=== PATIENT | male | born 1950 | race Caucasian/White ===

== ENCOUNTER 2023-10-17 05:53 | Day surgery (SDC) | payer OTHER, SELFPAY ==
[2023-10-03 08:37] LABS: Hematocrit 43.3 % (39.0-52.0); Hemoglobin 14.4 g/dL (13.0-18.0); Mean Corp Hgb Conc. 33.3 g/dL (33.0-37.0); Mean Corpuscular Hgb 32.1 pg (27.0-31.0); Mean Corpuscular Volume 96.7 fL (80.0-94.0); Mean Platelet Volume 10.6 fL (7.4-10.4); Platelet Count 199 10^3/uL (130-400); Red Blood Cell Count 4.48 10^6/uL (4.70-6.10); Red Cell Dist. Width 13.2 % (11.5-14.5); White Blood Cell Count 7.6 10^3/uL (4.8-10.8)
[2023-10-03 08:44] LABS: Urine Albumin Negative (Neg - Trace); Urine Bilirubin Negative (Negative); Urine Character Clear (Clear); Urine Color Yellow; Urine Glucose Negative (Negative); Urine Ketone Negative (Negative); Urine Leukocyte Negative (Negative); Urine Nitrite Negative (Negative); Urine Occult Blood Negative (Negative); Urine Urobilinogen Negative (Neg - 1+)
[2023-10-03 08:47] LABS: Blood Urea Nitrogen 12 mg/dl (9-20); Carbon Dioxide 36 mmol/L (22-30); Chloride 101 mmol/L (98-107); Glucose 99 mg/dl (70-99); INR 1.02; PT 13.2 Sec (11.4-14.6); Potassium 3.7 mmol/L (3.5-5.1); Sodium 142 mmol/L (135-145); eGFR > 60.00
[2023-10-03 08:48] LABS: APTT 30.7 Sec (23.4-35.0)
[2023-10-03 13:25] VITALS: BMI 31.6
[2023-10-17] VITALS (9 sets, daily range): BP systolic 113–146; BP diastolic 68–92; BMI 31.6
== END 2023-10-17 15:12 | disposition home or self-care (01) ==
LOC: SDS 05:53
PROVIDERS: ATTENDING PHYSICIAN Surgery; FAMILY PHYSICIAN Family Medicine
DX: N43.41 Spermatocele of epididymis, single (principal); Z87.438 Personal history of other diseases of male genital organs
CPT/HCPCS: 54840; 88304; 36415; 80048; 81003; 85027; 85610; 85730; 93005

== ENCOUNTER → 2023-12-19 07:23 | Outpatient (REF) | payer OTHER, SELFPAY | LOC: HWRAD 07:23 | PROVIDERS: ATTENDING PHYSICIAN Internal Medicine Critical Care Medicine; FAMILY PHYSICIAN Family Medicine | DX: Z87.891 Personal history of nicotine dependence (principal) | CPT/HCPCS: 71271 ==

== ENCOUNTER 2024-12-17 10:01 | Inpatient (IN) | payer OTHER, SELFPAY ==
[2024-12-17] VITALS (24 sets, daily range): BP systolic 74–141; BP diastolic 44–89; PULSE 2–139
--- NOTE | 2024-12-17 07:10 | ED.GENMED ---
History of Present Illness
General
Chief Complaint: Breathing Problem
Source: patient and spouse
Exam Limitations: none
Time Seen by Provider: 12/17/24 07:01
Nursing documentation reviewed up to this point in time: agreed with
History of Present Illness
History of Present Illness:
74-year-old male with a past medical history of hypertension, hyperlipidemia, COPD, chronic respiratory failure on 3 L of oxygen at home who presents to the emergency department with his for evaluation of increasing cough and shortness of
breath. Patient reports symptoms have been ongoing for about 2 days but his says that he has appeared labored for about a week. Significantly worsening over the past 24 hours. This morning was very labored and brought him to the
emergency to be assessed. He has had increased cough over the past 2 days that he says is productive of clear sputum. He denies any chest pain. He denies subjective fever or chills but was noted to have a high fever here. He has not noted any
swelling in the legs. He has not had any abdominal pain, nausea/vomiting although he does admit to some loose stools. He denies any other complaints.
Past History
Past History
ED Past Medical History: COPD, HTN, Hypercholesterolemia and Psychiatric (Depression)
ED Past Surgical History: Appendectomy
Social History
Tobacco: Non-smoker
Alcohol: None
Drug: None
Personal:
Living: with family
Family History
Family History: Other
Review of Systems
Review of Systems
All Other Systems: ROS reviewed and negative except as documented in HPI and ROS
Constitutional: Reports fever and chills
Respiratory: Reports cough and trouble breathing
Cardiac: Denies chest pain
ABD/GI: Reports diarrhea; Denies abdominal pain, nausea or vomiting
: Denies flank pain
Musculoskeletal: Denies neck pain or back pain
Neurological: Denies headache
Phy Exam
Physical Exam
Physical Exam:
General: Awake, alert, moderate respiratory distress
Head: Normocephalic, atraumatic
Eyes: Conjunctiva normal, EOMI
Throat: Airway intact, handling secretions
Neck: Trachea midline, no JVD
Lungs: Patient is sitting upright, speaking in 1-2 word sentences, tachypneic with increased work of breathing and accessory muscle use; he is hypoxic (78% in triage but was not wearing his oxygen; on 3 L oxygen which he wears at home he is 87%); he
has diminished breath sounds throughout, faint scattered wheezing
Heart: Tachycardia with irregular rhythm, no murmurs, gallops, or rubs
Abd: Soft, non distended, nontender
Neuro: No gross deficits
Skin: no rash
Extremities: No edema in extremities, equal pulses in all extremities
Scores
Heart Failure Risk
Heart Failure Risk Score: Not Applicable
Heart Score for Chest Pain Patients
STEMI patient?: Not applicable
Withdrawal Assessment of Alcohol
Withdrawal Assessment Completed?: Not applicable
Sepsis
Sepsis Screening
Sepsis Assessment: Sepsis
Sepsis Screen
Sepsis Screen: Sepsis
Date: 12/17/24
Time: 10:22
Course
Orders/Labs/Results
Orders:
Orders
12/17/24 07:01
Urinalysis Reflex To Culture Urgent
Ipratropium/Albuterol Sulfate [Duoneb] 3 ml INH R NOW STA
12/17/24 07:02
Electrocardiogram (*1) Urgent
Reason for Study: Shortness of Breath
EKG- Treatment ONCE
0.9% Sodium Chloride 1000 ml [Nss] 1,000 ml IV BOLUS
Acetaminophen [Tylenol] 1,000 mg PO NOW STA
12/17/24 07:09
CR Chest Portable - 1 View Urgent
Comment:
Reason For Exam: sob, cough, fever
Reason Study Needs to be Portable: Unable to Transport
12/17/24 07:10
MethylPREDNISolone PF [Solu-Medrol Pf] 125 mg IV NOW STA
12/17/24 07:12
Bipap [RESP] Urgent
Patient to use own unit?: No
Inspiratory Pressure (cm H2O): 12
Expiratory Pressure (cm H2O): 5
12/17/24 07:13
Complete Blood Count/With Diff Urgent
Comprehensive Metabolic Panel Urgent
Glycohemoglobin (HgbA1c) Urgent
NT-proBNP Routine
Comment: ADD ON
Troponin I Routine
Comment: ADD ON
Venous Blood Gas Urgent
%Oxygen/Room Air: 87
Blood Culture Q30M
QUANG Source: Blood/Venous
Specimen Description:
Influenza A+B Rapid Molecular Urgent
QUANG Source: Nasal Swab
Specimen Description:
12/17/24 07:14
COVID-19 Antigen Urgent
Source: Nasal Swab
Lactate Level [Lactic Acid] Urgent
TSH Routine
Comment: ADD ON
Azithromycin 500 mg/250 ml [Zithromax Infusion] 500 mg in 250 ml IV NOW
CefTRIAXone [Rocephin] 1,000 mg IV NOW STA
12/17/24 07:15
PTT Urgent
Comment: Obtain baseline before beginning heparin infusion if not already collected
12/17/24 07:27
Diltiazem HCl [Cardizem] 10 mg IV NOW STA
12/17/24 07:30
Blood Culture Q30M
QUANG Source: Blood/Venous
Specimen Description:
12/17/24 07:42
Heparin 4,000 units IV NOW STA
Nursing to Place Non Medication Order As Directed
Physician Order: PTT 6 hours after initial start of Heparin infusion
Above order entered?: Yes
12/17/24 07:44
0.9% Sodium Chloride 500 ml [Nss] 500 ml IV BOLUS
12/17/24 07:45
Heparin 36015 Units/250 ml 25,000 units in 250 ml IV PER PROTOCOL
Weight to be used for heparin protocol in kilograms (kg):: 99.337
Protocol:: Cardiac Tx/Acute Coronary
PTT Goal Range to be used:: PTT 73 to 111 seconds
Order type:: Initial
INITIAL Infusion Dose (UNITS/KG/hr) & then follow protocol:: 12 units/kg/hr
Infusion Dose in UNITS/hr & then follow protocol (UNITS/hr):: 1,000
INFUSION RATE in mL/hr & then follow protocol (mL/hr):: 10
PTT less than or equal to 64 seconds:: Increase rate by 200 units/hr (+ 2 mL/hr)
PTT 64.1 to 72.9 seconds:: Increase rate by 100 units/hr (+ 1 mL/hr)
PTT 73 to 111 seconds:: Target Range. No change in rate.
PTT 111.1 to 130.9 seconds:: Decrease rate by 100 units/hr (- 1 mL/hr)
PTT 131 to 199.9 seconds:: HOLD for 1 hr. Then decrease rate by 200 units/hr (- 2 mL/hr)
PTT greater than or equal to 200 seconds:: HOLD for 2 hrs & Notify Provider. Then decrease by 200 units/hr (-
2 mL/hr)
Lab follow-up:: Each change, PTT q6h until 2 consecutive are therapeutic. Then PTT
daily.
12/17/24 07:49
Heparin 45952 Units/250 ml 25,000 units in 250 ml .ROUTE .STK-MED
12/17/24 07:50
0.9% Sodium Chloride 1000 ml [Nss] 1,000 ml IV BOLUS
12/17/24 08:29
Ipratropium/Albuterol Sulfate [Duoneb] 3 ml INH R NOW ONE
12/17/24 08:58
Add On- LAB Routine
Tests Added?: pro bnp, tsh, hgba1c, troponin
Admit/Transfer Patient As Directed
Co-Sign Provider:
Level of Care: Inpatient admission
Assign to:: IMU- Intermediate Care
Physician / Group: pasricha/medicine
Diagnosis: Acute on chronic hypoxic respiratory failure, COPD exacerbation, pneumonia
Reason for Hospitalization: Acute on chronic hypoxic respiratory failure, COPD exacerbation, pneumonia
Expected length of stay greater than two midnights?: Yes
ELOS- Estimated Length of Stay in days: 3
I certify the patient meets the requirements for IP care: Yes
12/17/24 08:59
PRN Pain Medication Management As Directed
May give lesser potent ordered pain med per pt: Yes
preference::
Protocol:: Medication orders for pain may be administered in a
manner that supports deferring to patient preference
when the pt is:
- Requesting an ordered lesser potent pain medication.
Least to most potent pain medications are defined
as: acetaminophen < NSAID < tramadol < opioids
(morphine, oxycodone, hydromorphone).
- Requesting a lesser dose of the same medication IF
ORDERED.
- Requesting a less intrusive route of administration
if both routes are prescribed by the provider (PO <
IV).
12/17/24 09:05
Code Status As Directed
Resuscitation Status: Full Code
12/17/24 11:15
Lactic Acid Urgent
12/17/24 14:00
PTT Urgent
Comment: heparin drip
Abnormal Lab Results
12/17/24 12/17/24 12/17/24
07:13 07:14 07:15
WBC 11.4 H 10^3/uL
(4.8-10.8)
RBC 4.28 L 10^6/uL
(4.70-6.10)
MCV 98.4 H fL
(80.0-94.0)
MCH 32.5 H pg
(27.0-31.0)
MPV 11.0 H fL
(7.4-10.4)
Abs Immat Gran (auto) 0.1 H 10^3/uL
(0-0.05)
Absolute Neuts (auto) 10.7 H 10^3/uL
(1.4-6.5)
Absolute Lymphs (auto) 0.3 L 10^3/uL
(1.2-3.4)
Neutrophils % 93.3 H %
(42.2-75.2)
Lymphocytes % 2.6 L %
(20.5-51.1)
APTT 35.4 H Sec
(23.4-35.0)
VBG pCO2 56 H mmHg
(35-48)
VBG HCO3 30.9 H mmol/L
(22-27)
Carbon Dioxide 32 H mmol/L
(22-30)
BUN 38 H mg/dl
(9-20)
Creatinine 1.6 H mg/dL
(0.7-1.3)
Glucose 189 H mg/dl
(70-99)
Lactic Acid 2.9 H mmol/L
(0.7-2.0)
AST 66 H U/L
(17-59)
Troponin I 0.124 H* ng/ml
12/17/24 07:13
12/17/24 07:13
Vital Signs
Initial and Last Documented VS:
Initial Vital Signs
Temp Pulse Resp BP Pulse Ox
39.6 C H 129 32 141/76 78
12/17/24 06:53 12/17/24 06:53 12/17/24 06:53 12/17/24 06:53 12/17/24 06:53
Last Documented Vital Signs
Temp Pulse Resp BP Pulse Ox
39.6 C H 106 14 108/71 94
12/17/24 06:53 12/17/24 10:15 12/17/24 10:15 12/17/24 10:00 12/17/24 10:15
MDM/Problems Addressed
Differential Diagnosis Includes:
COPD exacerbation, bronchitis/viral illness, pneumonia, PE considered less likely clinically
MDM/Problems Addressed:
74-year-old male presents with increased shortness of breath, cough noted to have high fever here�symptoms progressing over the past week but significantly worse over the past 2 days. He is normotensive but tachycardic, tachypneic, febrile, hypoxic
with increased work of breathing�exam as documented. He was brought back to room IV placed labs sent off including a CBC and a CMP, lactate and blood cultures, COVID and flu swabs. Will check stat EKG, stat portable chest x-ray. Will place
patient on BiPAP. Treat with DuoNeb, steroids, empiric antibiotics for suspected pneumonia with fever and productive cough. Monitor very closely, anticipate admission.
Chest x-ray reviewed by me shows severe right mid to lower lobar pneumonia. Antibiotics ordered.
EKG reviewed and is consistent with A-fib with RVR. Patient has no known history of atrial fibrillation. Fluids and antipyretics given will also provide some diltiazem. Initiate treatment with heparin.
He did have some transient hypotension which improved with fluids. Heart rate improved with fluids. Respiratory rate and oxygenation have stabilized after optimizing BiPAP settings. His labs were reviewed he has a leukocytosis, CMP shows MAXIMILIANO with
a creatinine of 1.6. His lactate was slightly elevated will repeat status post fluids. Troponin elevated likely due to hypoxemia in the setting of respiratory failure from pneumonia. At this point can admit for continued treatment of multiple
medical issues. Discussed with hospitalist.
Chronic conditions affecting care:
COPD, chronic respiratory failure
Acute Exacerbation and/or Progression of Chronic Illness:
Acute on chronic respiratory failure treated with oxygen and BiPAP
Acute COPD exacerbation treated with steroids and DuoNeb
Acute pneumonia and sepsis treated with IV fluids, antibiotics, BiPAP
*Radiology
Radiology exam reviewed: preliminary read by ED provider
*Pulse Oximetry
Patient hypoxic: yes
*EKG
Interpreted by ED Provider?: Yes
Heart Rate: 137
Rate: tachycardiac
Rhythm: a-fib
[place]: normal axis
Interval: normal interval
QRS Pattern: normal QRS
Ischemia: non-specific ST changes
*Critical Care Note
Total Time (30-74mins, 75-104mins- exclusive of procedures): 38
comment:
Critical care statement: A total of 38 minutes of critical care time was provided for this patient. This includes management of unstable vital signs, evaluation of the patient at bedside, frequent reassessment, discussion with
consultants/hospitalist, and review of pertinent medical records. This time was separate from time utilized to perform any aforementioned documented procedures
Data Reviewed
Review of Other/Old Records Reveals: Labs and Records
Source: patient and spouse
Patient Management
Discussion with other providers: Hospitalist (Discussed with hospitalist)
Escalation/DeEscalation of care consider admission/obs:
Admission indicated
ED Attending Note
-
Portions of this chart may have been created with voice recognition software.� Occasional wrong word or��sound alike� substitutions may have occurred due to the inherent limitations of voice recognition software.
Discharge Plan
Departure
Patient Disposition: Admit
Date of Disposition: 12/17/24
Time of Disposition: 07:30
Admit to doctor: Sb
Presentation/result/management discussed w/ accepting MD/DO: Hospitalist
Discharge Problem:
Acute exacerbation of chronic obstructive pulmonary disease, Pneumonia, Sepsis, Acute and chronic respiratory failure with hypoxia, Atrial fibrillation with rapid ventricular response
Interventions
Interventions:
*Risk Screen - Suicide Last Done: 12/17/24 06:53
*General Assessment Last Done: 12/17/24 08:45
*Neglect/Abuse Screening Last Done: 12/17/24 08:45
*ED- Fall Risk Assessment Last Done: 12/17/24 08:33
*ED COVID-19 Vaccine History Last Done: 12/17/24 08:54
ED- Cardiac Assessment Last Done: 12/17/24 08:33
ED- Pulmonary Assessment Last Done: 12/17/24 08:33
[2024-12-17] MEDS: DUONEB 3 ML INH ×5 (07:19→19:38)
[2024-12-17] MEDS: TYLENOL 1000 MG PO (07:19)
[2024-12-17 07:25] LABS: % Basophils 0.2 % (0-2); % Immature Granulocytes 0.4 % (0-0.5); % Lymphocytes 2.6 % (20.5-51.1); % Monocytes 3.5 % (1.7-9.3); % Neutrophils 93.3 % (42.2-75.2); Absolute Immature Granulocytes 0.1 10^3/uL (0-0.05); Absolute Lymphocytes 0.3 10^3/uL (1.2-3.4); Absolute Monocytes 0.4 10^3/uL (0.1-0.6); Absolute Neutrophils 10.7 10^3/uL (1.4-6.5); Hematocrit 42.1 % (39.0-52.0); Hemoglobin 13.9 g/dL (13.0-18.0); Mean Corpuscular Hgb 32.5 pg (27.0-31.0); Mean Corpuscular Volume 98.4 fL (80.0-94.0); Nucleated Red Blood Cells % 0 % (-); Platelet Count 148 10^3/uL (130-400); Red Blood Cell Count 4.28 10^6/uL (4.70-6.10); Red Cell Dist. Width 14.2 % (11.5-14.5); Venous Blood Gas B.E. 3.8 mmol/L (-4 to +4); Venous Blood Gas HCO3 30.9 mmol/L (22-27); Venous Blood Gas pCO2 56 mmHg (35-48); Venous Blood Gas pH 7.35 (7.32-7.43); Venous Blood Gas pO2 45 mmHg (30-50); White Blood Cell Count 11.4 10^3/uL (4.8-10.8)
[2024-12-17] MEDS: NSS 1000 IV ×2 (07:28→08:09)
[2024-12-17 07:37] LABS: Lactic Acid 2.9 mmol/L (0.7-2.0)
[2024-12-17 07:39] LABS: ALT (SGPT) 45 U/L (0-50); AST (SGOT) 66 U/L (17-59); Albumin 3.5 g/dl (3.5-5.0); Alkaline Phosphatase 77 U/L (38-126); Blood Urea Nitrogen 38 mg/dl (9-20); Calcium 8.5 mg/dl (8.4-10.2); Carbon Dioxide 32 mmol/L (22-30); Chloride 102 mmol/L (98-107); Glucose 189 mg/dl (70-99); Potassium 3.9 mmol/L (3.5-5.1); Sodium 141 mmol/L (135-145); Total Protein 6.4 g/dl (6.3-8.2); eGFR 44.38
[2024-12-17] MEDS: ZITHROMAX INFUSION 250 IV (07:39)
[2024-12-17] MEDS: SOLU-MEDROL PF 125 MG IV (07:39)
[2024-12-17] MEDS: ROCEPHIN 1000 MG IV (07:39)
--- NOTE | 2024-12-17 07:42 | EDRN ---
BIPAP 14/5 5L
[2024-12-17 07:43] LABS: COVID-19 Antigen Negative (Negative)
[2024-12-17] MEDS: NSS 500 IV (07:45)
[2024-12-17] MEDS: HEPARIN 4000 UNITS IV (07:51)
[2024-12-17] MEDS: HEPARIN 25000 UNITS/250 ML IV (07:56)
--- NOTE | 2024-12-17 07:59 | EDRN ---
CARDIZEM on HOLD as BP is not within parameters- dr aware.
[2024-12-17 08:16] LABS: APTT 35.4 Sec (23.4-35.0)
[2024-12-17 10:06] LABS: NT-proBNP 3780 pg/ml; Troponin I 0.124 ng/ml
--- NOTE | 2024-12-17 10:14 | EDRN ---
Hospitalist notified of critical value troponin
[2024-12-17 10:25] LABS: TSH 1.15 uIU/ml (0.47-4.68)
--- NOTE | 2024-12-17 10:50 | EDRN ---
transferred on BIPAP
[2024-12-17 10:59] LABS: Glycohemoglobin (HgbA1c) 6.2 % (4.0-5.6)
--- NOTE | 2024-12-17 12:00 | CON.CAR ---
Addendum entered and electronically signed by Dannie Wright MD 12/17/24 16:16:
I saw and examined the patient.
The Authorization Manager's note was reviewed and I agree with the note.
Comment: Briefly, 74-year-old man past medical history of COPD on home O2 who presenting with cough, dyspnea and fever and found to have right lower lobe pneumonia.
Admission ECG showed atrial fibrillation with rapid ventricular response which is a new diagnosis for him
Started on short acting p.o. diltiazem
With reduced LV systolic function on echo here plan to stop calcium channel kaleb in favor of beta-kaleb
Would titrate metoprolol for goal heart rate less than 110 bpm although in the setting of sepsis okay to tolerate higher heart rates in the short-term
Started on heparin drip for cardioembolic prophylaxis. Will transition to oral anticoagulation prior to discharge, tentatively Eliquis.
Echocardiogram here shows moderately reduced LV systolic function and elevated filling pressures
In the setting of sepsis blood pressure is marginal and unlikely to tolerate guideline directed medical therapy
Hold on diuretics as he just received IVF resuscitation
Rest per Mi Sr
Original Note:
Consultation
Consultation Request
Date/Time Consultation Requested: 12/17/2024
Date/Time Consultation Performed: 12/17/2024
Requesting Provider: Dr. Fernandez
Performing Provider: Mi Sr PA-C for Dr. Dannie Wright
Reason for Consultation: A-fib with rapid ventricular response
Medical History
-
History of Present Illness:
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
department for progressively worsening cough, shortness of breath and fever. Patient's symptoms started approximately 3 to 4 days ago and have progressively gotten worse over the last 24 hours. Patient admits to productive cough with clear sputum.
He started having increased oxygen demand at home wearing 3 L of oxygen [id number]. He follows with Dr. Limon of pulmonary for COPD and reports he is never seen cardiology. Patient noted to be febrile with temp of 103.3. Chest x-ray
consistent with severe right lower lobe pneumonia and severe bilateral upper lobe emphysema. EKG showed atrial fibrillation with rapid ventricular response, troponin 0.124. MAXIMILIANO with creatinine of 1.6, elevated white count, proBNP 3780. TSH was
1.15 and COVID negative
Past medical history:
Hypertension
Hyperlipidemia
COPD/emphysema
Chronic oxygen at home 3 L via nasal cannula primarily at night
Past Medical History
Past Medical History: Other (See HPI)
Past Surgical History: Appendectomy and Urological (Spermatocele 2021, testicular cyst removal October 2023)
Social History
Tobacco: Former Smoker (40+ pack years)
Alcohol: None
Drug: None
Personal:
Living: With Family
Family History
Family History: Other (Father of lung cancer, mother had sarcoma)
Allergies / Home Medications
Allergy/AdvReac Type Severity Reaction Status Date / Time
amoxicillin [Amoxicillin] Allergy diarrhea Verified 10/17/23 11:16
Sulfa (Sulfonamide Allergy 'knocks me Verified 10/17/23 11:16
Antibiotics) out; I get
all funny'
�Medication �Instructions �Recorded �Confirmed �Type
multivitamin with folic acid 400 1 tab PO QPM 10/31/14 12/17/24 History
mcg tablet (Tab-A-Christen)
sertraline 50 mg tablet 50 mg PO QPM 10/31/14 12/17/24 History
guaifenesin 600 mg tablet, 600 mg PO Q12 06/17/19 12/17/24 Rx
extended release 12 hr (Mucus
Relief ER)
amlodipine 10 mg tablet 10 mg PO QPM 09/04/22 12/17/24 History
umeclidinium 62.5 mcg-vilanterol 1 inh inhalation R DAILY 09/04/22 12/17/24 History
25 mcg/actuation powdr for
inhalation (Anoro Ellipta)
lisinopril 20 mg tablet 20 mg PO QPM 10/13/23 12/17/24 History
vit C 250 mg-vit E 90 mg-zinc 40 2 tab PO DAILY 10/13/23 12/17/24 History
mg-copper 1 [id number]
capsule (PreserVision AREDS-2)
atorvastatin 20 mg tablet 20 mg PO QPM 12/17/24 12/17/24 History
glucosamine-chondroitin 250 mg-200 2 tab PO DAILY 12/17/24 12/17/24 History
mg tablet
Review of Systems
-
History Source: Patient
All other systems: Negative unless noted
Physical Exam
Vital Signs
Temp Pulse Resp BP Pulse Ox
103.3 F H 108 21 117/67 91
12/17/24 06:53 12/17/24 10:30 12/17/24 10:30 12/17/24 10:30 12/17/24 10:30
GEN: No distress, awake, Ox3, lying in bed wearing oxygen
HEENT: supple, anicteric, mmm
LUNGS: Decreased breath sounds with faint scattered wheezing and crackles right greater than left; wearing 5 L of oxygen via nasal cannula
CV: Irregularly irregular, tachycardic, S1/S2, 1/6 syst murmur
ABD: soft, BS+, NT/ND
EXT: Trace edema bilaterally, no clubbing or cyanosis
NEURO: Gross non-focal
SKIN: No rash, warm, dry, pink
Lab Results
12/17/24 07:13
12/17/24 07:13
Troponin I 0.124 ng/ml H* 12/17/24 07:13
Ijy-L-Ksdhsyjnhrd Pept 3780 pg/ml 12/17/24 07:13
Impression / Plan
-
PCP: Celia Casas
Library Circulation Technician: None prior to arrival, initial consultation Dr. Dannie Wright
Impression:
Presents 12/17/2024 with progressively worsening cough, shortness of breath, fever
Hypoxic respiratory insufficiency
Right lower lobe pneumonia
Atrial fibrillation with rapid ventricular response, appears to be new diagnosis
MAXIMILIANO, creatinine 1.6
Leukocytosis
Abnormal troponin, likely nonischemic myocardial injury secondary to acute pneumonia, fever, MAXIMILIANO
Hypertension
Hyperlipidemia
COPD/emphysema
Chronic oxygen at home 3 L via nasal cannula primarily at night
Echo 2008: EF 55 to 60%. D-shaped ventricle seen with elevated right heart pressures. RV enlarged with reduced function. Enlarged right atrium. Mildly enlarged left atrium. Mild MR. Moderate AI. Moderate TR with severe pulmonary hypertension
with PAP 55 mmHg.
Plan:
Presents 12/17/2024 with progressively worsening cough, shortness of breath, fever and hypoxic respiratory insufficiency secondary to right lower lobe pneumonia
-IV antibiotics with ceftriaxone and azithromycin per primary service
-Leukocytosis likely secondary to pneumonia
-Wean oxygen as able
Atrial fibrillation with rapid ventricular response, appears to be new diagnosis
-Unclear duration likely exacerbated by fever, pneumonia and MAXIMILIANO
-Would rate control with diltiazem. Would avoid beta-kaleb given history of severe COPD/emphysema
-Check echocardiogram
-Will need eventual anticoagulation. Start IV heparin drip for now
- TSH 1.15
MAXIMILIANO, creatinine 1.6.
-Would avoid nephrotoxic agents. Hold outpatient dose of lisinopril
Abnormal troponin, likely nonischemic myocardial injury secondary to acute pneumonia, fever, MAXIMILIANO and atrial fibrillation with rapid ventricular response. Denies chest pain. Trend to peak
Hypertension
-Maintained on amlodipine and lisinopril as outpatient.
-Hold lisinopril given MAXIMILIANO
-Would consider diltiazem in place of amlodipine for rate control with atrial fibrillation
HPI 12/17/2024:
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
department for progressively worsening cough, shortness of breath and fever. Patient's symptoms started approximately 3 to 4 days ago and have progressively gotten worse over the last 24 hours. Patient admits to productive cough with clear sputum.
He started having increased oxygen demand at home wearing 3 L of oxygen [id number]. He follows with Dr. Limon of pulmonary for COPD and reports he is never seen cardiology. Patient noted to be febrile with temp of 103.3. Chest x-ray
consistent with severe right lower lobe pneumonia and severe bilateral upper lobe emphysema. EKG showed atrial fibrillation with rapid ventricular response, troponin 0.124. MAXIMILIANO with creatinine of 1.6, elevated white count, proBNP 3780. TSH was
1.15 and COVID negative
Data Reviewed
-
EKG: Report Reviewed by me, Discussed with Physician, Discussed with Patient and Discussed with Family
Radiology: Report Reviewed by me, Discussed with Physician, Discussed with Patient and Discussed with Family
Labs: Labs Reviewed by me, Discussed with Physician, Discussed with Patient and Discussed with Family
Old Records: Reviewed
--- NOTE | 2024-12-17 13:29 | HPS.HSE ---
Family Physician
-
Family Physician: Celia Casas
Chief Complaint
-
sob
History of Present Illness
74-year-old male with past medical history of COPD, on oxygen only at night (3 L), pulm hypertension, former tobacco use, hypertension, hyperlipidemia now presents for worsening shortness of breath, evidence of fever and worsening cough. Symptoms
initiated 3 to 4 days ago progressively getting worse over the last 24 hours. Has a cough, clear. No chest pain. Noted to have oxygen saturation of 77% on room air upon presentation. Upon admission, patient is not wheezing, with audible breath
sounds bilaterally. Found to be in atrial fibrillation. Notable temperature 103.3, pulse 118, respiratory rate 22, blood pressure 117/67. Initially placed on BiPAP, given DuoNebs, fluid, steroids and quickly weaned to 2 L of oxygen saturating
above 92%. Chest imaging with evidence of severe right lower lobe pneumonia, severe bilateral upper lobe emphysema. White count 11.4, VBG 7.35/56. Creatinine 1.6, troponin 0.124, proBNP 3780. SARS-CoV-2 and flu negative.
Medical History
Past Medical History
Past Medical History: Reports Other (COPD, on oxygen only at night (3 L), pulm hypertension, former tobacco use, hypertension, hyperlipidemia)
Past Surgical History: Reports Other ( Appendectomy and Urological (Spermatocele 2021, testicular cyst removal October 2023))
Social History
Tobacco: Former Smoker ((40+ pack years))
Alcohol: None
Drug: None
Personal:
Living: With Family
Family History
Family History: Not pertinent
Allergies / Home Medications
Allergies reflects when Allergies were last updated in [facility].
Home Medications with original date entered in [facility]
Allergy/Medication List:
Allergies
Allergy/AdvReac Type Severity Reaction Status Date / Time
amoxicillin [Amoxicillin] Allergy diarrhea Verified 10/17/23 11:16
Sulfa (Sulfonamide Allergy 'knocks me Verified 10/17/23 11:16
Antibiotics) out; I get
all funny'
Home Medications
multivitamin with folic acid 400 mcg tablet (Tab-A-Christen) 1 tab PO QPM 10/31/14
sertraline 50 mg tablet 50 mg PO QPM 10/31/14
guaifenesin 600 mg tablet, extended release 12 hr (Mucus Relief ER) 600 mg PO Q12 06/17/19
amlodipine 10 mg tablet 10 mg PO QPM 09/04/22
umeclidinium 62.5 mcg-vilanterol 25 mcg/actuation powdr for inhalation (Anoro Ellipta) 1 inh inhalation R DAILY 09/04/22
lisinopril 20 mg tablet 20 mg PO QPM 10/13/23
vit C 250 mg-vit E 90 mg-zinc 40 mg-copper 1 [id number] capsule (PreserVision AREDS-2) 2 tab PO DAILY 10/13/23
atorvastatin 20 mg tablet 20 mg PO QPM 12/17/24
glucosamine-chondroitin 250 mg-200 mg tablet 2 tab PO DAILY 12/17/24
Review of Systems
-
History Source: Patient
A 12 point ROS was completed and negative except as noted: Yes
Physical Exam
Vital Signs
Vital Signs
Temp Pulse Resp BP Pulse Ox
103.3 F H 108 21 117/67 91
12/17/24 06:53 12/17/24 10:30 12/17/24 10:30 12/17/24 10:30 12/17/24 10:30
Physical Exam
General: Well Developed and Well Nourished
HEENT: NormoCephalic and Anicteric
Respiratory: Clear
Cardiac: Irregular Rhythm
GI: Non Tender
Musculoskeletal: No Clubbing
Skin: Warm
Neuro: Awake, Alert, Oriented and AO x 3
Hematologic/Lymphatic: No Lymphadenopathy
Psych: Calm
Laboratory Results
-
12/17/24 07:13
12/17/24 07:13
Laboratory Results
APTT 35.4 Sec (23.4-35.0) H 12/17/24 07:15
Lactic Acid 2.9 mmol/L (0.7-2.0) H 12/17/24 07:14
Total Bilirubin 1.0 mg/dl (0.2-1.3) 12/17/24 07:13
AST 66 U/L (17-59) H 12/17/24 07:13
ALT 45 U/L (0-50) 12/17/24 07:13
Alkaline Phosphatase 77 U/L (38-126) 12/17/24 07:13
Troponin I 0.124 ng/ml H* 12/17/24 07:13
Data Reviewed
-
Diagnostic Radiology: Report Reviewed by me
Lab Data: Labs Reviewed by me
Impression/Plan
-
IMPRESSION:
74-year-old male history of COPD now presenting for shortness of breath found to be in atrial fibrillation, right lower lobe pneumonia, acute hypoxic and hypercapnic respiratory failure.
PLAN:
#Acute hypoxic and hypercapnic respiratory failure
� Secondary to #COPD exacerbation
� In setting of #pneumonia
� Wheezing appears to be improved, now on BiPAP
� O2 goal greater than 88%, wean O2 as necessary
� Continue DuoNebs every 6 hours, as needed
� Can hold on further steroids at this point in setting of pneumonia. Consider if wheezing or shortness of breath worsens
� Antibiotics
� Anoro equivalent
#Severe sepsis
#Community-acquired pneumonia
� Continue ceftriaxone, azithromycin
� See plan above
� Incentive spirometer, Acapella
� Sputum cultures if expectorating
#New onset atrial fibrillation with RVR
� Mostly triggered by pulmonary pathology
� Avoiding beta-kaleb given COPD/emphysema and acute exacerbation
� Continue IV heparin
� TSH within normal limits
� Follow-up echo
� Continue diltiazem, titrate as necessary
� Cardiology consulted
#MAXIMILIANO
� Unclear baseline versus MAXIMILIANO; suspect either prerenal versus septic ATN
� Avoid nephrotoxic agents, hold lisinopril
#Elevated troponin
� Most likely nonischemic myocardial injury secondary to above
� Continue to trend
� Follow-up echo
#Hypertension
� Hold amlodipine, lisinopril due to above
� Diltiazem; hold off on amlodipine in the future if diltiazem successful and controlling rate
#Hyperlipidemia
� Continue statin
Follow lipid panel
#DVT prophylaxis
� Heparin drip
[2024-12-17 14:29] LABS: Lactic Acid 1.6 mmol/L (0.7-2.0)
[2024-12-17 14:30] LABS: APTT 78.1 Sec (23.4-35.0)
--- NOTE | 2024-12-17 14:31 | PTCARENOTE ---
Late entry: Received at 1050, Imu monitors placed AFIB on tele rates 110. BIPap removed by RT and placed on NC. PO fluids offered, ordered lunch.
Currently admission completed, remains in AFIB on tele 100. IV Heparin infusing, labs and urine obtained awaiting results. Sao2 92%. Family at bedside.
[2024-12-17 14:40] LABS: Urine Albumin 3+ (Neg - Trace); Urine Bilirubin Negative (Negative); Urine Character Clear (Clear); Urine Color Yellow; Urine Glucose Negative (Negative); Urine Ketone Negative (Negative); Urine Leukocyte Negative (Negative); Urine Nitrite Negative (Negative); Urine Occult Blood 3+ (Negative); Urine Urobilinogen 1+ (Neg - 1+)
[2024-12-17 14:45] LABS: Troponin I 0.101 ng/ml
[2024-12-17 14:52] LABS: Urine Squamous Cell 0-2 /LPF (Few)
[2024-12-17 14:54] LABS: Urine Bacteria Few (Negative); Urine White Cell 0-2 /HPF (0-5)
[2024-12-17] MEDS: ZOLOFT 50 MG PO (16:46)
[2024-12-17] MEDS: THERAGRAN 1 TABLET PO (16:47)
[2024-12-17] MEDS: LIPITOR 20 MG PO (16:47)
[2024-12-17] MEDS: LOPRESSOR 12.5 MG PO (16:51)
[2024-12-17] MEDS: TYLENOL 650 MG PO (16:51)
--- NOTE | 2024-12-17 17:38 | PTCARENOTE ---
Afib rates up to 110s-130 this pm - po lopressor given as ordered. Fever 100.5 noted, tremulous- PRN Tylenol given
[2024-12-17] MEDS: ADVAIR HFA 230/21 MCG INHALER 2 PUFF INH (19:37)
[2024-12-17] MEDS: MUCINEX 600 MG PO (20:12)
[2024-12-17 20:53] LABS: APTT 68.9 Sec (23.4-35.0)
[2024-12-17 21:06] LABS: Troponin I 0.071 ng/ml
[2024-12-18] VITALS (15 sets, daily range): BP systolic 99–166; BP diastolic 57–105; PULSE 2–119
[2024-12-18] MEDS: LOPRESSOR 12.5 MG PO ×4 (00:06→16:28)
[2024-12-18 03:47] LABS: Hemoglobin 11.8 g/dL (13.0-18.0); Mean Corp Hgb Conc. 32.8 g/dL (33.0-37.0); Mean Corpuscular Hgb 32.6 pg (27.0-31.0); Mean Corpuscular Volume 99.4 fL (80.0-94.0); Platelet Count 134 10^3/uL (130-400); Red Blood Cell Count 3.62 10^6/uL (4.70-6.10); Red Cell Dist. Width 14.2 % (11.5-14.5); White Blood Cell Count 8.8 10^3/uL (4.8-10.8)
[2024-12-18 04:00] LABS: APTT 90.6 Sec (23.4-35.0)
[2024-12-18 04:28] LABS: ALT (SGPT) 50 U/L (0-50); AST (SGOT) 59 U/L (17-59); Alkaline Phosphatase 62 U/L (38-126); Blood Urea Nitrogen 40 mg/dl (9-20); Calcium 8.3 mg/dl (8.4-10.2); Carbon Dioxide 31 mmol/L (22-30); Chloride 107 mmol/L (98-107); Glucose 157 mg/dl (70-99); HDL Cholesterol 12 mg/dl; LDL Cholesterol, Calculated 32 mg/dl; Magnesium 2.2 mg/dl (1.6-2.3); Potassium 4.4 mmol/L (3.5-5.1); Sodium 140 mmol/L (135-145); Total Bilirubin 0.5 mg/dl (0.2-1.3); Total Cholesterol 65 mg/dl (50-199); Total Protein 5.6 g/dl (6.3-8.2); Triglyceride 105 mg/dl (10-149); Very Low Density Lipoprotein 21 mg/dl (0-30); eGFR > 60.00
[2024-12-18 04:56] LABS: Hepatitis C Antibody Negative (Negative)
--- NOTE | 2024-12-18 05:15 | PTCARENOTE ---
Assumed care of pt from reese YOUNGBLOOD. Pt aaox3. 95% on 5L NC. afib on monitor, hr 80-110s. Heparin gtt currently infusing at 1100 units/hour. Previous PTT therapeutic, next one Rx'd for 929. Pt resting in bed with call lockhart in reach.
[2024-12-18] MEDS: DUONEB 3 ML INH ×4 (07:25→20:10)
[2024-12-18] MEDS: ADVAIR HFA 230/21 MCG INHALER 2 PUFF INH ×2 (07:25→20:10)
--- NOTE | 2024-12-18 07:47 | W.PN.CARDCBS ---
Addendum entered and electronically signed by Rom Valladares DO 12/18/24 09:31:
.
For better HR control, Gave additional Lopressor 12.5 mg this am and started Toprol XL 25 mg BID this PM
Original Note:
Today's Communication / Plan
-
Cont Metoprolol for heart rate control. Some tachycardia is permissible in the setting of sepsis.
TSH 1.15.
Cont IV Heparin for cardioembolic prophylaxis.
Will transition to oral anticoagulation prior to discharge, tentatively Eliquis.
Echocardiogram shows moderately reduced LV systolic function and elevated filling pressures
In the setting of sepsis blood pressure is marginal and unlikely to tolerate guideline directed medical therapy
Hold on diuretics as he just received IVF resuscitation but continue to monitor volume status closely.
Cont med tx for now for nonMI troponin, peak 0.12. Eventual ischemic eval, likely outpt
Impression / Plan
-
.
PCP: Celia Casas
Circus Laborer: None prior to arrival, initial consultation Dr. Dannie Wright
Impression:
Presents 12/17/2024 with progressively worsening cough, shortness of breath, fever
Hypoxic respiratory insufficiency
Right lower lobe pneumonia
Atrial fibrillation with rapid ventricular response, appears to be new diagnosis
MAXIMILIANO, creatinine 1.6, resolved with IVF
Leukocytosis
Abnormal troponin, likely nonischemic myocardial injury secondary to acute pneumonia, fever, MAXIMILIANO, peak 0.12
New CM, EF 35-40%
Hypertension
Hyperlipidemia
COPD/emphysema
Chronic oxygen at home 3 L via nasal cannula primarily at night
Echo 2008: EF 55 to 60%. D-shaped ventricle seen with elevated right heart pressures. RV enlarged with reduced function. Enlarged right atrium. Mildly enlarged left atrium. Mild MR. Moderate AI. Moderate TR with severe pulmonary hypertension
with PAP 55 mmHg.
Echo Dec 17 2024: Normal left ventricular chamber size. Mildly to moderately reduced left ventricular systolic function. Left ventricular ejection fraction is 35-40%. Global hypokinesis. Mild concentric left ventricular hypertrophy. Normal right
ventricular size. Normal right ventricular systolic function. Mild mitral regurgitation. Moderate tricuspid regurgitation. Estimated pulmonary artery pressure of 55-60 mmHg. Assuming a right atrial pressure of 15 mmHg.
Plan:
Presents 12/17/2024, 74-year-old man past medical history of COPD on home O2 who presenting with cough, dyspnea and fever and found to have right lower lobe pneumonia.
Admission ECG showed atrial fibrillation with rapid ventricular response which is a new diagnosis for him
Started on short acting p.o. diltiazem but wWith reduced LV systolic function on echo here plan to stop calcium channel kaleb in favor of beta-kaleb
Cont Metoprolol for heart rate control. Some tachycardia is permissible in the setting of sepsis.
TSH 1.15.
Cont IV Heparin for cardioembolic prophylaxis.
Will transition to oral anticoagulation prior to discharge, tentatively Eliquis.
Echocardiogram shows moderately reduced LV systolic function and elevated filling pressures
In the setting of sepsis blood pressure is marginal and unlikely to tolerate guideline directed medical therapy
Hold on diuretics as he just received IVF resuscitation but continue to monitor volume status closely.
Cont med tx for now for nonMI troponin, peak 0.12. Eventual ischemic eval, likely outpt
He was on amlodipine and lisinopril as outpatient.
Bp stable on Metoprolol alone.
Cont broad spectrum IV Abx as per primary service.
HPI 12/17/2024:
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
department for progressively worsening cough, shortness of breath and fever. Patient's symptoms started approximately 3 to 4 days ago and have progressively gotten worse over the last 24 hours. Patient admits to productive cough with clear sputum.
He started having increased oxygen demand at home wearing 3 L of oxygen [id number]. He follows with Dr. Limon of pulmonary for COPD and reports he is never seen cardiology. Patient noted to be febrile with temp of 103.3. Chest x-ray
consistent with severe right lower lobe pneumonia and severe bilateral upper lobe emphysema. EKG showed atrial fibrillation with rapid ventricular response, troponin 0.124. MAXIMILIANO with creatinine of 1.6, elevated white count, proBNP 3780. TSH was
1.15 and COVID negative
Progress Note - Circus Laborer
Subjective
Date of Service: December 18, 2024
pt seen and examined. Feels improved. No cp
Objective
Labs:
12/18/24 03:30
12/18/24 03:30
Labs
Hgb 11.8 g/dL (13.0-18.0) L 12/18/24 03:30
Hct 36.0 % (39.0-52.0) L 12/18/24 03:30
Plt Count 134 10^3/uL (130-400) 12/18/24 03:30
APTT 90.6 Sec (23.4-35.0) H 12/18/24 03:30
Sodium 140 mmol/L (135-145) 12/18/24 03:30
Potassium 4.4 mmol/L (3.5-5.1) 12/18/24 03:30
BUN 40 mg/dl (9-20) H 12/18/24 03:30
Creatinine 1.1 mg/dL (0.7-1.3) 12/18/24 03:30
Glucose 157 mg/dl (70-99) H 12/18/24 03:30
Troponins
12/17/24 12/17/24 12/17/24
07:13 14:04 20:23
Troponin I 0.124 H* 0.101 H* 0.071 H* D
12/18/24 12/18/24
02:00 08:00
Troponin I Cancelled Cancelled
Vital Signs and I&O:
Vital Signs
Temp Pulse Resp BP Pulse Ox
97.9 F 74 20 129/85 94
12/18/24 07:10 12/18/24 07:27 12/18/24 07:27 12/18/24 05:56 12/18/24 07:27
Vital Signs
Temp Pulse Resp BP Pulse Ox
97.9 F 74 20 129/85 94
12/18/24 07:10 12/18/24 07:27 12/18/24 07:27 12/18/24 05:56 12/18/24 07:27
Intake & Output
12/16/24 12/17/24 12/18/24 12/19/24
06:59 06:59 06:59 06:59
Intake Total 1680 / 1680
Output Total 1025 / 1025
Balance 655 / 655
Physical Exam
Physical Exam
General: No acute distress, AAOX3
Neck: Negative JVD
Heart: Irregularly irregular, Negative S3 positive S1/S2, Negative S4, No murmur
Lungs: Decreased breath sounds throughout, negative wheezes/rales/rhonchi
Abd: Positive BS, NT/ND, neg rebound/rigidity/guarding
Ext: Negative cyanosis/clubbing/edema
Neuro: nonfocal
[2024-12-18] MEDS: MUCINEX 600 MG PO ×2 (08:38→20:08)
[2024-12-18] MEDS: STERILE WATER FOR INJECTION 10 ML IV (08:38)
[2024-12-18] MEDS: ROCEPHIN 1000 MG IV (08:38)
[2024-12-18] MEDS: ZITHROMAX INFUSION 250 IV (08:39)
[2024-12-18] MEDS: HEPARIN 25000 UNITS/250 ML IV (08:40)
[2024-12-18 10:13] LABS: APTT 64.7 Sec (23.4-35.0)
--- NOTE | 2024-12-18 13:51 | W.PN.HOSP.TC ---
Today's Communication/Plan
-
IV heparin
Switch to Toprol, monitor heart rates
Avoid nephrotoxic agents, monitor renal function with resuscitation
Continue antibiotics
Follow-up cultures
Wean O2 as tolerated; goal O2 greater than 88%
Assessment / Plan
Assessment / Plan
Physical Exam
General: Well Developed and Well Nourished
HEENT: NormoCephalic and Anicteric
Respiratory: Clear
Cardiac: Irregular Rhythm
GI: Non Tender
Musculoskeletal: No Clubbing
Skin: Warm
Neuro: Awake, Alert, Oriented and AO x 3
Hematologic/Lymphatic: No Lymphadenopathy
Psych: Calm
74-year-old male history of COPD now presenting for shortness of breath found to be in atrial fibrillation, right lower lobe pneumonia, acute hypoxic and hypercapnic respiratory failure.
PLAN:
#Acute hypoxic and hypercapnic respiratory failure
� Secondary to #COPD exacerbation
� In setting of #pneumonia
� Wheezing appears to be improved, off NIV
� O2 goal greater than 88%, wean O2 as necessary
� Continue DuoNebs every 6 hours, as needed
� Can hold on further steroids at this point in setting of pneumonia. Consider if wheezing or shortness of breath worsens
� Antibiotics
� Anoro equivalent
#Severe sepsis
#Community-acquired pneumonia
� Continue ceftriaxone, azithromycin
� See plan above
� Incentive spirometer, Acapella
� Sputum cultures if expectorating
#New onset atrial fibrillation with RVR
� Mostly triggered by pulmonary pathology
� With new Reduced EF - switch to BB
� Continue IV heparin, NOAC prior to discharge
� TSH within normal limits
� Follow-up echo - new HF
� Continue diltiazem, titrate as necessary
� Cardiology consulted
#New onset HFrEF
-�EF 35 to 40%, global hypokinesis
� Continue beta-kaleb
� In setting of sepsis, atrial fibrillation, will hold on further ischemic workup at this point
� Holding diuretics as receiving resuscitation for sepsis
� Will need ischemic workup outpatient
#MAXIMILIANO
� Unclear baseline; suspect either prerenal versus septic ATN
� Avoid nephrotoxic agents, hold lisinopril
�Monitor with resuscitation
#Elevated troponin
� Most likely nonischemic myocardial injury secondary to above
� Troponins peaked at 0.12
� Eventual ischemic eval outpatient, likely
� Follow-up echo, EF 35 to 40%
#Hypertension
� Hold amlodipine, lisinopril due to above
�Beta-kaleb
#Hyperlipidemia
� Continue statin
#DVT prophylaxis
� Heparin drip
Anticipated Discharge: 24 - 48 hours
Subjective/Interval History
-
Date of Service: December 18, 2024
no acute events; on 5L
Objective Data
-
Labs:
Laboratory Results
12/18/24 12/18/24 12/18/24
03:30 09:44 17:15
WBC 8.8
Hgb 11.8 L
Hct 36.0 L
Plt Count 134
APTT 90.6 H 64.7 H Pending
Sodium 140
Potassium 4.4
Chloride 107
Carbon Dioxide 31 H
BUN 40 H
Creatinine 1.1
Glucose 157 H
Calcium 8.3 L
Total Bilirubin 0.5
AST 59
ALT 50
Alkaline Phosphatase 62
Vital Signs:
Vital Signs
Temp Pulse Resp BP Pulse Ox
99.9 F 119 18 135/61 95
12/18/24 11:20 12/18/24 11:01 12/18/24 11:01 12/18/24 08:00 12/18/24 11:01
I&O
12/17/24 12/18/24 12/19/24
06:59 06:59 06:59
Intake Total 1680 / 1680 240 / 240
Output Total 1025 / 1025 200 / 200
Balance 655 / 655 40 / 40
Review of Systems
-
History Source: Patient
All other systems: Not reviewed unless documented
Data Reviewed
-
Diagnostic Radiology: Report Reviewed by me
Labs: Labs Reviewed by me
[2024-12-18] MEDS: TYLENOL 650 MG PO (16:17)
--- NOTE | 2024-12-18 16:52 | PTCARENOTE ---
0930 AF rates up to 110s-120s- d/w Dr. Mosqueda- po metoprolol given.
OOB ambulated to bathroom and then to recliner chair with family in room for 2 hours.
Currently back in bed but restless, HR 120s-130s, temp 100.4 skin hot /dry, eyes tearing. One time metoprolol dose given and Tylenol also given for temp . Untangled wires and placed on side now sleeping. rates now 110-130s. PO fluids provided.
[2024-12-18] MEDS: LIPITOR 20 MG PO (17:11)
[2024-12-18] MEDS: ZOLOFT 50 MG PO (17:11)
[2024-12-18] MEDS: THERAGRAN 1 TABLET PO (17:11)
[2024-12-18 18:16] LABS: APTT 61.1 Sec (23.4-35.0)
--- NOTE | 2024-12-18 18:16 | PTCARENOTE ---
Rates improved 100-120 now, fever broke- bed /gown changed for dampness. Less restless.
[2024-12-18] MEDS: TOPROL XL 25 MG PO (20:07)
--- NOTE | 2024-12-18 23:16 | PTCARENOTE ---
Assumed care of pt from reese RN. Pt aaox3. afib on monitor, hr 80-110s. 93% on 6L NC. vital signs and assessment as documented. Pt is resting in bed with call lockhart in reach.
--- NOTE | 2024-12-18 23:17 | PTCARENOTE ---
Assumed care of pt from reese YOUNGBLOOD. Pt aaox3. afib on monitor, hr 80-110s. 93% on 6L NC. heparin gtt infusing at 1400 units/hr. vital signs and assessment as documented. Pt is resting in bed with call lockhart in reach.
[2024-12-19] VITALS (17 sets, daily range): BP systolic 99–176; BP diastolic 65–101; PULSE 2–138
[2024-12-19 02:02] LABS: APTT 85.1 Sec (23.4-35.0)
[2024-12-19] MEDS: HEPARIN 25000 UNITS/250 ML IV (05:24)
[2024-12-19 06:13] LABS: ALT (SGPT) 63 U/L (0-50); AST (SGOT) 76 U/L (17-59); Albumin 2.7 g/dl (3.5-5.0); Alkaline Phosphatase 73 U/L (38-126); Blood Urea Nitrogen 39 mg/dl (9-20); Calcium 8.5 mg/dl (8.4-10.2); Carbon Dioxide 34 mmol/L (22-30); Chloride 106 mmol/L (98-107); Glucose 120 mg/dl (70-99); Potassium 4.7 mmol/L (3.5-5.1); Sodium 141 mmol/L (135-145); Total Bilirubin 0.5 mg/dl (0.2-1.3); Total Protein 5.2 g/dl (6.3-8.2); eGFR > 60.00
[2024-12-19 06:28] LABS: Hematocrit 36.2 % (39.0-52.0); Hemoglobin 11.8 g/dL (13.0-18.0); Mean Corp Hgb Conc. 32.6 g/dL (33.0-37.0); Mean Corpuscular Hgb 32.3 pg (27.0-31.0); Mean Corpuscular Volume 99.2 fL (80.0-94.0); Mean Platelet Volume 11.4 fL (7.4-10.4); Platelet Count 141 10^3/uL (130-400); Red Blood Cell Count 3.65 10^6/uL (4.70-6.10); Red Cell Dist. Width 14.6 % (11.5-14.5); White Blood Cell Count 7.7 10^3/uL (4.8-10.8)
[2024-12-19] MEDS: DUONEB 3 ML INH ×4 (07:17→19:27)
[2024-12-19] MEDS: ADVAIR HFA 230/21 MCG INHALER 2 PUFF INH ×2 (07:17→19:27)
--- NOTE | 2024-12-19 07:58 | W.PN.CARDCBS ---
Today's Communication / Plan
-
Cont Toprol XL 25 mg BID. HRs improved.
Some tachycardia is permissible in the setting of sepsis.
TSH stable at 1.15.
Cont rate control strategy for now.
IV Heparin for cardioembolic prophylaxis was put on hold due to epistaxis.
Resume once ok from Hospitalist standpoint
Will transition to oral anticoagulation prior to discharge, tentatively Eliquis.
Echocardiogram shows moderately reduced LV systolic function and elevated filling pressures
In the setting of sepsis blood pressure has been low and pt unlikely to tolerate guideline directed medical therapy
Hold on diuretics as he received IVF resuscitation but continue to monitor volume status closely.
Check Daily wts as it does not look like this has been done
Cont med tx for now for nonMI troponin, peak 0.12. Eventual ischemic eval, likely outpt
Impression / Plan
-
.
PCP: Celia Casas
Building Services Technician: None prior to arrival, initial consultation Dr. Dannie Wright
Impression:
Presents 12/17/2024 with progressively worsening cough, shortness of breath, fever
Hypoxic respiratory insufficiency
Right lower lobe pneumonia
Atrial fibrillation with rapid ventricular response, appears to be new diagnosis
MAXIMILIANO, creatinine 1.6, resolved with IVF
Leukocytosis
Abnormal troponin, likely nonischemic myocardial injury secondary to acute pneumonia, fever, MAXIMILIANO, peak 0.12
New CM, EF 35-40%
Hypertension
Hyperlipidemia
COPD/emphysema
Chronic oxygen at home 3 L via nasal cannula primarily at night
Echo 2008: EF 55 to 60%. D-shaped ventricle seen with elevated right heart pressures. RV enlarged with reduced function. Enlarged right atrium. Mildly enlarged left atrium. Mild MR. Moderate AI. Moderate TR with severe pulmonary hypertension
with PAP 55 mmHg.
Echo Dec 17 2024: Normal left ventricular chamber size. Mildly to moderately reduced left ventricular systolic function. Left ventricular ejection fraction is 35-40%. Global hypokinesis. Mild concentric left ventricular hypertrophy. Normal right
ventricular size. Normal right ventricular systolic function. Mild mitral regurgitation. Moderate tricuspid regurgitation. Estimated pulmonary artery pressure of 55-60 mmHg. Assuming a right atrial pressure of 15 mmHg.
Plan:
Presents 12/17/2024, 74-year-old man past medical history of COPD on home O2 who presenting with cough, dyspnea and fever and found to have right lower lobe pneumonia.
Admission ECG showed atrial fibrillation with rapid ventricular response which is a new diagnosis for him
Cont Toprol XL 25 mg BID. HRs improved.
Some tachycardia is permissible in the setting of sepsis.
TSH stable at 1.15.
Cont rate control strategy for now.
IV Heparin for cardioembolic prophylaxis was put on hold due to epistaxis.
Resume once ok from Hospitalist standpoint
Will transition to oral anticoagulation prior to discharge, tentatively Eliquis.
Echocardiogram shows moderately reduced LV systolic function and elevated filling pressures
In the setting of sepsis blood pressure has been low and pt unlikely to tolerate guideline directed medical therapy
Hold on diuretics as he received IVF resuscitation but continue to monitor volume status closely.
Check Daily wts as it does not look like this has been done
Cont med tx for now for nonMI troponin, peak 0.12. Eventual ischemic eval, likely outpt
He was on amlodipine and lisinopril as outpatient.
Bp stable on Toprol alone.
Cont broad spectrum IV Abx as per primary service.
Discussed with nursing.
HPI 12/17/2024:
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
department for progressively worsening cough, shortness of breath and fever. Patient's symptoms started approximately 3 to 4 days ago and have progressively gotten worse over the last 24 hours. Patient admits to productive cough with clear sputum.
He started having increased oxygen demand at home wearing 3 L of oxygen [id number]. He follows with Dr. Limon of pulmonary for COPD and reports he is never seen cardiology. Patient noted to be febrile with temp of 103.3. Chest x-ray
consistent with severe right lower lobe pneumonia and severe bilateral upper lobe emphysema. EKG showed atrial fibrillation with rapid ventricular response, troponin 0.124. MAXIMILIANO with creatinine of 1.6, elevated white count, proBNP 3780. TSH was
1.15 and COVID negative
Progress Note - Building Services Technician
Subjective
Date of Service: December 19, 2024
Pt seen and examined. No chest pain. Breathing better.
Objective
Labs:
12/19/24 05:17
12/19/24 05:17
Labs
Hgb 11.8 g/dL (13.0-18.0) L 12/19/24 05:17
Hct 36.2 % (39.0-52.0) L 12/19/24 05:17
Plt Count 141 10^3/uL (130-400) 12/19/24 05:17
APTT 85.1 Sec (23.4-35.0) H 12/19/24 01:39
Sodium 141 mmol/L (135-145) 12/19/24 05:17
Potassium 4.7 mmol/L (3.5-5.1) 12/19/24 05:17
BUN 39 mg/dl (9-20) H 12/19/24 05:17
Creatinine 1.1 mg/dL (0.7-1.3) 12/19/24 05:17
Glucose 120 mg/dl (70-99) H 12/19/24 05:17
Troponins
12/17/24 12/17/24 12/17/24
07:13 14:04 20:23
Troponin I 0.124 H* 0.101 H* 0.071 H* D
12/18/24 12/18/24
02:00 08:00
Troponin I Cancelled Cancelled
Vital Signs and I&O:
Vital Signs
Temp Pulse Resp BP Pulse Ox
97.9 F 108 18 119/71 96
12/19/24 03:00 12/19/24 07:23 12/19/24 07:23 12/19/24 06:00 12/19/24 07:23
Vital Signs
Temp Pulse Resp BP Pulse Ox
97.9 F 108 18 119/71 96
12/19/24 03:00 12/19/24 07:23 12/19/24 07:23 12/19/24 06:00 12/19/24 07:23
Intake & Output
12/17/24 12/18/24 12/19/24 12/20/24
06:59 06:59 06:59 06:59
Intake Total 1680 / 1680 740 / 740
Output Total 1025 / 1025 950 / 950
Balance 655 / 655 -210 / -210
Physical Exam
Physical Exam
General: No acute distress, AAOX3
Neck: Negative JVD
Heart: Irregularly irregular, Negative S3 positive S1/S2, Negative S4, No murmur
Lungs: Decreased breath sounds throughout, negative wheezes/rales/rhonchi
Abd: Positive BS, NT/ND, neg rebound/rigidity/guarding
Ext: Negative cyanosis/clubbing/edema
Neuro: nonfocal
--- NOTE | 2024-12-19 08:14 | PTCARENOTE ---
Per Respiratory Therapist Jewels, who had patient yesterday, patient noted with increased hemoptysis this AM and they reached out to hospitalist on this RNs behalf. Hospitalist instructed to stop the Heparin gtt for the time being. Cardiology at
bedside at time of gtt discontinuation, agrees with plan. Will continue to assess hemoptysis.
[2024-12-19] MEDS: STERILE WATER FOR INJECTION 10 ML IV (08:20)
[2024-12-19] MEDS: MUCINEX 600 MG PO ×2 (08:21→20:13)
[2024-12-19] MEDS: TOPROL XL 25 MG PO (08:21)
[2024-12-19] MEDS: ZITHROMAX INFUSION 250 IV (08:21)
[2024-12-19] MEDS: ROCEPHIN 1000 MG IV (08:21)
--- NOTE | 2024-12-19 09:15 | PTCARENOTE ---
Patient received from hotel night auditor. Patient resting comfortably in bed. Was on BiPAP HS, but now on N/C. Normally Room Air at baseline, will attempt to wean. No events noted overnight. No complaints of pain at this time. Heparin gtt stopped due
to increased hemoptysis. Monitoring quantitatively. Continuing ABX. Chest CT ordered. Call lockhart in reach.
--- NOTE | 2024-12-19 12:45 | W.PN.HOSP.TC ---
Today's Communication/Plan
-
resume hep ggt, monitor for hemolysis
� Antibiotics
� Wean O2, goal O2 greater than 88%
monitor HR, titrate rate control as needed
Assessment / Plan
Assessment / Plan
Physical Exam
General: Well Developed and Well Nourished
HEENT: NormoCephalic and Anicteric
Respiratory: Clear
Cardiac: Irregular Rhythm
GI: Non Tender
Musculoskeletal: No Clubbing
Skin: Warm
Neuro: Awake, Alert, Oriented and AO x 3
Hematologic/Lymphatic: No Lymphadenopathy
Psych: Calm
74-year-old male history of COPD now presenting for shortness of breath found to be in atrial fibrillation, right lower lobe pneumonia, acute hypoxic and hypercapnic respiratory failure.
PLAN:
#Acute on chronic hypoxic and hypercapnic respiratory failure
� Secondary to #COPD exacerbation
� In setting of #pneumonia
� Baseline 3 L at night/intermittent
� Wheezing appears to be improved, off NIV
� O2 goal greater than 88%, wean O2 as necessary
� Continue DuoNebs every 6 hours, as needed
� Can hold on further steroids at this point in setting of pneumonia. Consider if wheezing or shortness of breath worsens
� Antibiotics
� Anoro equivalent
#Severe sepsis
#Community-acquired pneumonia
� Continue ceftriaxone, azithromycin
� See plan above
� Incentive spirometer, Acapella
� Sputum cultures if expectorating
�Will need repeat CT imaging outpatient
#New onset atrial fibrillation with RVR
� Mostly triggered by pulmonary pathology
� With new Reduced EF - switch to BB
� Continue IV heparin, NOAC prior to discharge
� TSH within normal limits
� Follow-up echo - new HF
� Continue diltiazem, titrate as necessary
� Cardiology consulted
#New onset HFrEF
-�EF 35 to 40%, global hypokinesis
� Continue beta-kaleb
� In setting of sepsis, atrial fibrillation, will hold on further ischemic workup at this point
� Holding diuretics as receiving resuscitation for sepsis
� Will need ischemic workup outpatient
#Hemoptysis
� Heparin briefly held due to increased hemoptysis
� CT imaging with large right lower lobe consolidation, no evidence of active bleeding or malignancy at this time
� Resume heparin drip and monitor for worsening hemoptysis
� Will need repeat CT imaging outpatient for resolution
#MAXIMILIANO, resolving
� Unclear baseline; suspect either prerenal versus septic ATN
� Avoid nephrotoxic agents, hold lisinopril
�Monitor with resuscitation
#Elevated troponin
� Most likely nonischemic myocardial injury secondary to above
� Troponins peaked at 0.12
� Eventual ischemic eval outpatient, likely
� Follow-up echo, EF 35 to 40%
#Transaminitis
� Possibly secondary to infection versus DILI with abx
� Monitor
#Hypertension
� Hold amlodipine, lisinopril due to above
�Beta-kaleb
#Hyperlipidemia
� Continue statin
#DVT prophylaxis
� Heparin drip
Anticipated Discharge: 24 - 48 hours
Subjective/Interval History
-
Date of Service: December 19, 2024
Increased hemoptysis today
Objective Data
-
Labs:
Laboratory Results
12/19/24 12/19/24 12/19/24
01:39 05:17 07:40
WBC 7.7
Hgb 11.8 L
Hct 36.2 L
Plt Count 141
APTT 85.1 H Pending
Sodium 141
Potassium 4.7
Chloride 106
Carbon Dioxide 34 H
BUN 39 H
Creatinine 1.1
Glucose 120 H
Calcium 8.5
Total Bilirubin 0.5
AST 76 H
ALT 63 H
Alkaline Phosphatase 73
Vital Signs:
Vital Signs
Temp Pulse Resp BP Pulse Ox
98.4 F 120 20 137/78 90
12/19/24 11:34 12/19/24 11:24 12/19/24 11:24 12/19/24 08:21 12/19/24 11:24
I&O
12/18/24 12/19/24 12/20/24
06:59 06:59 06:59
Intake Total 1680 / 1680 740 / 740 960 / 960
Output Total 1025 / 1025 950 / 950 200 / 200
Balance 655 / 655 -210 / -210 760 / 760
Review of Systems
-
History Source: Patient
All other systems: Not reviewed unless documented
Data Reviewed
-
Diagnostic Radiology: Report Reviewed by me
Labs: Labs Reviewed by me
[2024-12-19 13:31] LABS: APTT 33.5 Sec (23.4-35.0)
[2024-12-19 14:52] LABS: Glucose - Point of Care 188 mg/dl (70-99)
--- NOTE | 2024-12-19 14:56 | CM ---
Patient with Dx Acute hypoxic/hypercapnic respiratory failure secondary to COPD exacerbation, pneumonia, sepsis, new Afib w RVR, new HF. Rapid response today- fell OOB per nurse. O2 increased to 15L per resp therapist. BiPAP. Receiving IV Abx,
Heparin gtt. CT Chest today. Head CT pending.
Spoke with patient's Valorie;
the patient resides with his in a 1 story house with 5 [address]IM[address] and stairs to laundry in basement.
The patient was independent in ADLs and ambulation.
DME - home O2 [employer] POC
No prior VN or SNF
PCP - Celia Casas
Pharmacy - [facility]
The patient has support from the , son in [place], son in [place] and daughter in law Good who is Infusion Nurse.
Patient may benefit from PT/OT Evals when medically appropriate.
Plan TBD.
--- NOTE | 2024-12-19 15:45 | W.PN.UPDATE ---
Update Note
Progress Note Update
Called by Dr. Fernandez to see patient. Patient on heparin drip for new onset A-fib and apparently fell and hit his head. Unknown mechanism of action. Nursing reports that he was very short of breath and in a 'tripod stance on the bed' so BiPAP
was started. Patient does have a small bubble on his forehead. Chest x-ray and CAT scan of his head are being done.
Selected Entries
12/19/24
11:34 12/19/24
12:00 12/19/24
14:48
Temp 98.4 F
Pulse 122
Resp Rate 27
Blood pressure 151/83
SaO2 96
GENERAL: well developed, well nourished, male in no apparent distress
HEENT: On BiPAP--small lump on forehead nontender
HEART: Irregularly irregular and tachycardic
LUNGS : Coarse rhonchi all lung mireles
ABDOM: soft, nontender, nondistended, + bowel sounds
EXT: no cyanosis, clubbing, or edema
NEUROLOGIC: Patient appears awake but has very little communication with me--unclear if this is his baseline or not
My review of head CT does not show any acute bleeding. Await formal read by radiology.
My review of the chest CT done earlier today shows significant large right-sided pneumonia.
Portable chest x-ray pending.
Would continue BiPAP for now, wean to off
Check stat ABG, although I am told he is much improved so will cancel.
Broaden antibiotics to Zosyn and stop z-max/rocephin.
[2024-12-19 15:58] LABS: Troponin I 0.043 ng/ml
[2024-12-19] MEDS: LOPRESSOR 5 MG IV (16:13)
--- NOTE | 2024-12-19 17:30 | RR ---
A Rapid Response was called on this patient, please see Rapid Response form.
Bed alarm was set off in patients room, upon arrival patient was found face down in a puddle of urine. Patient was rolled onto his back where he appeared cyanotic and a NRB was placed on. Rapid Response was called. After a few moments, patients
color began to return and was able to be sat up. Patient was able to be lifted back into bed where he appeared confused and slow to respond which slowly improved during the event. Due to patients increased work of breath, the BiPAP was placed on
patient to help. Nebulizer was given and a troponin was drawn. CXR was done prior to patient being taken down for head CT for a suspicion of hitting his head, a small bump was noted in center top forehead (spoke with post Rapid, stated
that it is a known cyst that they have been trying to get removed). Patient returned from CT and was taken off BiPAP and placed on N/C.
During rapid, patients HR was holding steady from 130's to 150's, which as slowly been increasing since the AM. Cardiology was reached out to and was able to ok an one time Lopressor 5mg as well as a PRN and increased scheduled doses.
After rapid, patient was asked orientation questions and was unable to correctly identify the year and month but later was able to. Patient also at one time, unable to recall the events and then later was able to stating 'that he had to pee and was
trying to get up and knew to call for staff assist but elected not to'. Patient has period of confusion and then follows with what appears normal conversation.
Patient with multiple attempts to get up and 'use the bathroom' after already going, a 1:1 observation is to be placed on patient overnight for safety.
[2024-12-19] MEDS: THERAGRAN 1 TABLET PO (17:41)
[2024-12-19] MEDS: ZOLOFT 50 MG PO (17:41)
[2024-12-19] MEDS: LIPITOR 20 MG PO (17:41)
[2024-12-19] MEDS: ZOSYN 50 IV ×2 (17:41→21:10)
[2024-12-19 18:03] LABS: Venous Blood Gas B.E. 5.3 mmol/L (-4 to +4); Venous Blood Gas HCO3 35.6 mmol/L (22-27); Venous Blood Gas O2 Sat % 96.6 %; Venous Blood Gas pH 7.24 (7.32-7.43); Venous Blood Gas pO2 69 mmHg (30-50)
[2024-12-19 18:07] LABS: Venous Blood Gas pCO2 83 mmHg (35-48)
[2024-12-19 18:29] LABS: Troponin I 0.077 ng/ml
[2024-12-19] MEDS: TOPROL XL 50 MG PO (20:13)
[2024-12-19] MEDS: OFIRMEV 100 IV (20:41)
[2024-12-19 21:44] LABS: Troponin I 0.072 ng/ml
[2024-12-20] VITALS (19 sets, daily range): BP systolic 102–146; BP diastolic 60–97; PULSE 2–102; O2SAT 93
--- NOTE | 2024-12-20 00:19 | PTCARENOTE ---
assumed care of patient. at start of shift, pt oxygen dropping to 70s- tachypneic and looking SOB, HR 130s a-fib. oxygen increased to 7L, respiratory notified, up to see patient and placed on bipap. pt confused, knows he is in [facility]
but does not know year. trying to climb OOB. 1:1 at bedside. pt was able to take pills whole with water without issues. using urinal at bedside. IV heparin gtt resumed by day RN. PTT ordered q6 hours from then. heparin gtt running at 14ml/hr.
notified covering [employer] of the above. IV tylenol given. will continue to monitor respiratory status. troponin level drawn- 0.072. care ongoing.
[2024-12-20 01:54] LABS: Hematocrit 37.7 % (39.0-52.0); Hemoglobin 11.9 g/dL (13.0-18.0); Mean Corp Hgb Conc. 31.6 g/dL (33.0-37.0); Mean Corpuscular Hgb 31.9 pg (27.0-31.0); Mean Corpuscular Volume 101.1 fL (80.0-94.0); Mean Platelet Volume 10.9 fL (7.4-10.4); Platelet Count 147 10^3/uL (130-400); Red Blood Cell Count 3.73 10^6/uL (4.70-6.10); Red Cell Dist. Width 14.9 % (11.5-14.5); White Blood Cell Count 7.3 10^3/uL (4.8-10.8)
[2024-12-20 02:07] LABS: APTT 90.3 Sec (23.4-35.0)
[2024-12-20 02:32] LABS: ALT (SGPT) 71 U/L (0-50); AST (SGOT) 77 U/L (17-59); Albumin 2.8 g/dl (3.5-5.0); Alkaline Phosphatase 67 U/L (38-126); Blood Urea Nitrogen 35 mg/dl (9-20); Calcium 8.7 mg/dl (8.4-10.2); Carbon Dioxide 35 mmol/L (22-30); Chloride 104 mmol/L (98-107); Glucose 138 mg/dl (70-99); Potassium 4.9 mmol/L (3.5-5.1); Sodium 142 mmol/L (135-145); Total Bilirubin 0.5 mg/dl (0.2-1.3); Total Protein 5.4 g/dl (6.3-8.2); eGFR > 60.00
[2024-12-20] MEDS: ZOSYN 50 IV ×2 (03:05→09:02)
--- NOTE | 2024-12-20 05:32 | PTCARENOTE ---
pt asking to be taken off bipap this AM. bipap removed and placed on 6L, 98%. pt AAOx3 this AM. pt does not recall any of the events from the previous day or start of the night. HR a-fib in the 80s, RR 20s at this time.
[2024-12-20] MEDS: DUONEB 3 ML INH ×4 (07:32→19:18)
[2024-12-20] MEDS: ADVAIR HFA 230/21 MCG INHALER 2 PUFF INH (07:32)
[2024-12-20] MEDS: TOPROL XL 50 MG PO ×2 (09:02→19:41)
[2024-12-20] MEDS: MUCINEX 600 MG PO (09:02)
[2024-12-20 09:33] LABS: APTT 92.8 Sec (23.4-35.0)
--- NOTE | 2024-12-20 09:45 | PTCARENOTE ---
Nightshift RN stated in report that patient's heparin gtt was restarted yesterday after head CT scan came back negative post fall. Heparin gtt running at 14 ml/hr. Dr. Silva made aware that in the SEP the heparin gtt is on hold. Dr. Silva
informed RN to keep gtt running and that he will restart order. Care ongoing.
[2024-12-20] MEDS: HEPARIN 25000 UNITS/250 ML IV (10:32)
--- NOTE | 2024-12-20 11:05 | W.PN.HOSP.TC ---
Today's Communication/Plan
-
unasyn/doxy
pulm consult
PT/OT
Assessment / Plan
Assessment / Plan
74yo M with PMHX of FATOUMATA on 3L nocturnal O2, anxiety, HLD, HTN, COPD came with palpitarions, managed for Afib with RVR and found hypoxia with COPD exacerbation with large RLL pneumonia
A/P:
#Afib with RVR
#Non-ischemic myocardial injury
#NEw HFrEF, not in exacerbation
New onset
Cardio consult
Echo with hypokinesis and EF 35-40% and moderate TR
BB for control, TSH WNL
due to low BP unable fully start GDMT
Heparin drip (since might need bronch), eventual DOAC
#Epistaxis/hemoptysis
resolved
monitor
Pulm consult
#Fall with AMS, possible in-hospital delirium
CT head without acute bleed
#CAP with acute on chronic hypoxic and hypercapnic respiratory failure
Large right lower lobe consolidation with air bronchograms as well as smaller right middle lobe and inferior right upper lobe opacification highly likely inflammatory/infectious extending to the right hilum with some likely small volume right hilar
lymphadenopathy
switched to Zosyn, now Unasyn/DOxy (cover possible aspiration)
Sputum Cx NTD
Bcx NTD
LEgionella and S.pneumonia urinary Ag
Wean off O2
Pulm consult
ANtitussives
cont bronchodilators
#MAXIMILIANO
hold ACEi
follow Cr
#Anxiety
#HLD
#HX of hypertension
stop Amlodipine to allow rate control with BB
cont sertraline
#Chonic transaminitits
at least since 2008
outpatient follow up with PCP
HepC neg
DVT ppx hep drip
Full code
Anticipated Discharge: 24 - 48 hours
Subjective/Interval History
-
Date of Service: December 20, 2024
Objective Data
-
Labs:
Laboratory Results
12/20/24 12/20/24
01:47 09:11
WBC 7.3
Hgb 11.9 L
Hct 37.7 L
Plt Count 147
APTT 90.3 H 92.8 H
Sodium 142
Potassium 4.9
Chloride 104
Carbon Dioxide 35 H
BUN 35 H
Creatinine 1.0
Glucose 138 H
Calcium 8.7
Total Bilirubin 0.5
AST 77 H
ALT 71 H
Alkaline Phosphatase 67
Vital Signs:
Vital Signs
Temp Pulse Resp BP Pulse Ox
98.5 F 99 25 112/76 93
12/20/24 03:00 12/20/24 10:03 12/20/24 10:03 12/20/24 10:03 12/20/24 10:03
I&O
12/19/24 12/20/24 12/21/24
06:59 06:59 06:59
Intake Total 740 / 740 1060 / 1060 420 / 420
Output Total 950 / 950 1250 / 1250 300 / 300
Balance -210 / -210 -190 / -190 120 / 120
Review of Systems
-
History Source: Patient
All other systems: Reviewed and negative
Physical Exam
-
General: Comfortable
Respiratory: Clear to Auscultation
GI: Soft, Nontender and Nondistended
Musculoskeletal: No Clubbing, No Cyanosis and No Edema
Skin: Warm
Neuro: Awake, Alert, Oriented and AO x 3
Psych: Calm
[2024-12-20] MEDS: ROBITUSSIN DM 5 ML PO (11:31)
[2024-12-20] MEDS: UNASYN IV ×3 (11:31→23:33)
--- NOTE | 2024-12-20 11:40 | W.PN.CARDCBS ---
Today's Communication / Plan
-
Heart rates better controlled today in A-fib
Continue current metoprolol dosing and monitor on telemetry
Eventual transition from heparin to oral anticoagulation
Impression / Plan
-
PCP: Celia Casas
Services Program Manager: None prior to arrival, initial consultation Dr. Dannie Wright
Impression:
Presents 12/17/2024 with progressively worsening cough, shortness of breath, fever
Hypoxic respiratory insufficiency
Right lower lobe pneumonia
Atrial fibrillation with rapid ventricular response, appears to be new diagnosis
MAXIMILIANO, creatinine 1.6, resolved with IVF
Leukocytosis
Abnormal troponin, likely nonischemic myocardial injury secondary to acute pneumonia, fever, MAXIMILIANO, peak 0.12
New CM, EF 35-40%
Hypertension
Hyperlipidemia
COPD/emphysema
Chronic oxygen at home 3 L via nasal cannula primarily at night
Echo 2008: EF 55 to 60%. D-shaped ventricle seen with elevated right heart pressures. RV enlarged with reduced function. Enlarged right atrium. Mildly enlarged left atrium. Mild MR. Moderate AI. Moderate TR with severe pulmonary hypertension
with PAP 55 mmHg.
Echo Dec 17 2024: Normal left ventricular chamber size. Mildly to moderately reduced left ventricular systolic function. Left ventricular ejection fraction is 35-40%. Global hypokinesis. Mild concentric left ventricular hypertrophy. Normal right
ventricular size. Normal right ventricular systolic function. Mild mitral regurgitation. Moderate tricuspid regurgitation. Estimated pulmonary artery pressure of 55-60 mmHg. Assuming a right atrial pressure of 15 mmHg.
Plan:
Presents 12/17/2024, 74-year-old man past medical history of COPD on home O2 who presenting with cough, dyspnea and fever and found to have right lower lobe pneumonia.
Admission ECG showed atrial fibrillation with rapid ventricular response which is a new diagnosis for him
Remains in AFib
Cont Toprol XL 25 mg BID. HRs improved.
Some tachycardia is permissible in the setting of sepsis.
Cont rate control strategy for now. Goal HR <110 bpm.
IV Heparin for cardioembolic prophylaxis was put on hold due to epistaxis. Now resumed.
Will transition to oral anticoagulation prior to discharge, tentatively Eliquis.
Echocardiogram shows moderately reduced LV systolic function and elevated filling pressures
In the setting of sepsis blood pressure has been low and pt unlikely to tolerate guideline directed medical therapy
Hold on diuretics as he received IVF resuscitation but continue to monitor volume status closely.
Check Daily wts
Cont med tx for now for nonMI troponin, peak 0.12. Eventual ischemic eval, likely outpt after resolution of sepsis.
He was on amlodipine and lisinopril as outpatient.
Bp stable on Toprol alone.
Cont broad spectrum IV Abx as per primary service.
HPI 12/17/2024:
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
department for progressively worsening cough, shortness of breath and fever. Patient's symptoms started approximately 3 to 4 days ago and have progressively gotten worse over the last 24 hours. Patient admits to productive cough with clear sputum.
He started having increased oxygen demand at home wearing 3 L of oxygen [id number]. He follows with Dr. Limon of pulmonary for COPD and reports he is never seen cardiology. Patient noted to be febrile with temp of 103.3. Chest x-ray
consistent with severe right lower lobe pneumonia and severe bilateral upper lobe emphysema. EKG showed atrial fibrillation with rapid ventricular response, troponin 0.124. MAXIMILIANO with creatinine of 1.6, elevated white count, proBNP 3780. TSH was
1.15 and COVID negative
Progress Note - Services Program Manager
Subjective
Date of Service: December 20, 2024
No acute overnight events. Patient is resting comfortably in bed this morning. No cardiac complaints. Reportedly had a fall overnight and currently has a one-to-one at bedside.
Objective
Labs:
12/20/24 01:47
12/20/24 01:47
Labs
Hgb 11.9 g/dL (13.0-18.0) L 12/20/24 01:47
Hct 37.7 % (39.0-52.0) L 12/20/24 01:47
Plt Count 147 10^3/uL (130-400) 12/20/24 01:47
APTT 92.8 Sec (23.4-35.0) H 12/20/24 09:11
Sodium 142 mmol/L (135-145) 12/20/24 01:47
Potassium 4.9 mmol/L (3.5-5.1) 12/20/24 01:47
BUN 35 mg/dl (9-20) H 12/20/24 01:47
Creatinine 1.0 mg/dL (0.7-1.3) 12/20/24 01:47
Glucose 138 mg/dl (70-99) H 12/20/24 01:47
Troponins
12/17/24 12/17/24 12/18/24
14:04 20:23 02:00
Troponin I 0.101 H* 0.071 H* D Cancelled
12/18/24 12/19/24 12/19/24
08:00 15:20 17:48
Troponin I Cancelled 0.043 H* 0.077 H* D
12/19/24
21:09
Troponin I 0.072 H*
Vital Signs and I&O:
Vital Signs
Temp Pulse Resp BP Pulse Ox
98.5 F 87 20 112/76 94
12/20/24 03:00 12/20/24 11:20 12/20/24 11:20 12/20/24 10:03 12/20/24 11:20
Vital Signs
Temp Pulse Resp BP Pulse Ox
98.5 F 87 20 112/76 94
12/20/24 03:00 12/20/24 11:20 12/20/24 11:20 12/20/24 10:03 12/20/24 11:20
Intake & Output
12/18/24 12/19/24 12/20/24 12/21/24
06:59 06:59 06:59 06:59
Intake Total 1680 / 1680 740 / 740 1060 / 1060 420 / 420
Output Total 1025 / 1025 950 / 950 1250 / 1250 300 / 300
Balance 655 / 655 -210 / -210 -190 / -190 120 / 120
Physical Exam
Physical Exam
Gen: NAD, AA
HEENT: NC/AT, sclera anicteric
Neck: No JVD
CV: Irregularly irregular
Lungs: No increased WOB on 4L NC
Abd: S/ND
Ext: No LE edema
Skin: Warm, dry
Neuro: Non-focal
[2024-12-20] MEDS: VIBRAMYCIN 260 MG IV (14:28)
--- NOTE | 2024-12-20 15:11 | PTCARENOTE ---
Patient AOx3. Patient has flat affect. Bed and chair alarm on and audible. 1:1 maintained from [id number] and then d/c due to patient able to make needs known and ring call lockhart appropriately. A fib on monitor. BP stable. 4L NC with SpO2 greater than
92%. Frequent strong productive cough. PRN cough syrup provided. Assist x1 with RW when OOB. Heparin gtt running at 14 mL/hr. Call lockhart within reach, bed in lowest position, and bed of wheels locked.
--- NOTE | 2024-12-20 16:47 | CON.PUL ---
Consultation
Consultation Request
Date/Time Consultation Requested: 12/20/2024
Date/Time Consultation Performed: 12/20/2024
Requesting Provider: Florentino Silva
Performing Provider: Jose L Neves
Reason for Consultation: Pneumonia
Medical History
-
Chief Complaint: Shortness of breath
History of Present Illness:
Patient is a very pleasant 74-year-old gentleman with known history of COPD, on home oxygen at night, chronic pulmonary hypertension, ex-smoker, hypertension, hyperlipidemia who presented to the hospital with increasing shortness of breath, fever
and cough. Patient reportedly developed symptoms about 3 to 4 days prior to the hospitalization. In the emergency room he was noted to be hypoxic in mid 70s. Patient also noted to be in atrial fibrillation with rapid ventricular rate, elevated
WBC count as well as fever on admission. Imaging was suggestive of right middle and lower lobe pneumonia. Patient was started on antibiotics. Infectious workup otherwise has been negative so far. He was also noted to have elevated proBNP and
acute kidney injury. Minimal troponin leak was also noted. Subsequently patient had a CT chest performed which showed dense consolidation in right lower lobe and some right middle lobe. Pulmonary consultation was requested for further input.
Past Medical History
Past Medical History: Reports Other (COPD, on oxygen only at night (3 L), pulm hypertension, former tobacco use, hypertension, hyperlipidemia)
Past Surgical History: Reports Other ( Appendectomy and Urological (Spermatocele 2021, testicular cyst removal October 2023))
Social History
Tobacco: Former Smoker ((40+ pack years))
Alcohol: None
Drug: None
Personal:
Living: With Family
Family History
Family History: Not pertinent
Allergies / Home Medications
Allergies / Home Medications
Allergies
Allergy/AdvReac Type Severity Reaction Status Date / Time
amoxicillin [Amoxicillin] Allergy diarrhea Verified 10/17/23 11:16
Sulfa (Sulfonamide Allergy 'knocks me Verified 10/17/23 11:16
Antibiotics) out; I get
all funny'
Home Medications
�Medication �Instructions �Recorded �Confirmed �Last Taken �Type
multivitamin with folic acid 400 1 tab PO QPM 10/31/14 12/17/24 12/16/24 History
mcg tablet (Tab-A-Christen)
sertraline 50 mg tablet 50 mg PO QPM 10/31/14 12/17/24 12/16/24 History
guaifenesin 600 mg tablet, 600 mg PO Q12 06/17/19 12/17/24 12/17/24 Rx
extended release 12 hr (Mucus
Relief ER)
amlodipine 10 mg tablet 10 mg PO QPM 09/04/22 12/17/24 12/16/24 History
umeclidinium 62.5 mcg-vilanterol 1 inh inhalation R DAILY 09/04/22 12/17/24 12/17/24 History
25 mcg/actuation powdr for
inhalation (Anoro Ellipta)
lisinopril 20 mg tablet 20 mg PO QPM 10/13/23 12/17/24 12/16/24 History
vit C 250 mg-vit E 90 mg-zinc 40 2 tab PO DAILY 10/13/23 12/17/24 12/17/24 History
mg-copper 1 [id number]
capsule (PreserVision AREDS-2)
atorvastatin 20 mg tablet 20 mg PO QPM 12/17/24 12/17/24 12/16/24 History
glucosamine-chondroitin 250 mg-200 2 tab PO DAILY 12/17/24 12/17/24 12/17/24 History
mg tablet
Review of Systems
-
Hematologic/Lymphatic: Other (All 14 systems reviewed and negative except as stated above in the history of present illness.)
Vitals / Labs / Diagnostic Testing
Vital Signs
Temp Pulse Resp BP Pulse Ox
98.3 F 96 22 115/69 97
12/20/24 11:53 12/20/24 15:33 12/20/24 15:33 12/20/24 14:00 12/20/24 15:33
Lab Data
12/20/24 01:47
12/20/24 01:47
Laboratory Results
12/20/24 12/20/24
01:47 09:11
APTT 90.3 H 92.8 H
Microbiology
12/18/24 03:34 Sputum Respiratory Culture - Final
Usual Respiratory Larry
12/18/24 03:34 Sputum Gram Stain - Final
12/17/24 07:30 Blood/Venous Blood Culture - Preliminary
No Growth in 72 hours- Final report to follow
12/17/24 07:13 Blood/Venous Blood Culture - Preliminary
No Growth in 72 hours- Final report to follow
12/17/24 14:04 Nose Nasal Screen MRSA (PCR) - Final
MRSA not detected - performed by PCR methodology.
Diagnostic Testing:
Physical Exam
-
HEENT: Normocephalic
Cardiovascular: S1/S2 and Other (Borderline elevated respiratory rate)
Respiratory: Rhonchi (Mostly in the right lower lobe posterior lung zones, no wheezing)
GI: Soft and Non Distended
Neurology: Awake, Alert and Oriented
Skin: Warm
General: Comfortable
Assessment
-
#1 Multifocal pneumonia, right middle and right lower lobe.
- Dense consolidation noted on x-ray as well as CT scan
- Sputum culture and respiratory larry. MRSA screen negative. Blood cultures have stayed negative. Influenza A and B screen negative. COVID-19 testing negative.
- White count has normalized down to 7.3, afebrile
- Currently on Unasyn and doxycycline, continue
- Check Legionella urine antigen
- Considering extent of consolidation and severity of his respiratory failure, start prednisone 40 mg daily for 5 doses.
- Patient will need a follow-up imaging in 8 to 12 weeks to evaluate for any underlying mass
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 Baseline severe obstruction with moderately reduced DLCO.
- Uses oxygen at night at baseline, 3 L at bedtime. Also has been on Anoro as outpatient.
- VBG 12/19 shows 7.24/ suggestive of acute on chronic hypercapnia. Baseline CO2 appears to be around 70s.
- Currently mental status normal, clinically not suggestive of any hypercapnic encephalopathy. Follow-up ABG for further evaluation
- Continue DuoNeb 4 times daily for now. Hold Anoro while inpatient
- No wheezing on exam. Prednisone started for underlying severe pneumonia
#3. Pulmonary hypertension. Suspect primarily group 3, with possibly component of group 2.
- Echocardiogram from 2008 showed elevated pulmonary artery systolic pressure in 50s, which have been essentially unchanged on most recent echocardiogram in 2024.
- RV systolic function however appears to be preserved.
- Continue supplemental oxygen. Target saturation would be more than 90%
- No indication for vasodilator therapy. Continue to optimize underlying obstructive airway disease and volume status
Other medical diagnoses:
- Atrial fibrillation with rapid ventricular rate. On metoprolol, heparin drip. Cardiology on case
- Elevated troponin, felt to be related to myocardial injury due to pneumonia, fever. Cardiology service on case
- Newly detected cardiomyopathy, EF 35 to 40%.
Total time spent on this consultation/encounter _85___ minutes which includes review of history, physical exam, medications, laboratory data, personal review of imaging, extensive review of outpatient records, discussion with care team and
respiratory therapy.
Data:
CT Chest 11/2024: Large right lower lobe consolidation with air bronchograms as well as smaller right middle lobe and inferior right upper lobe opacification highly likely inflammatory/infectious extending to the right hilum with some likely small
volume right hilar lymphadenopathy. Highly recommend follow-up Chest CT to confirm resolution of right lung opacification and to follow-up evaluation of right hilum.
Changes of emphysema again seen.
Minor left lung opacities most likely representing subsegmental atelectasis. Left lower lobe pneumonitis cannot be excluded.
CT head 11/2024: Negative
PFT 06/2022: FVC 68%, FEV1 38%, FEV1/FVC 40. Positive bronchodilator response. RV is 130% of predicted. DLCO 50%. Severe obstruction and moderately reduced DLCO.
ECHO 11/2024: Normal left ventricular chamber size. Mildly to moderately reduced left
ventricular systolic function. Left ventricular ejection fraction is 35-40%.
Global hypokinesis. Mild concentric left ventricular hypertrophy.
Normal right ventricular size. Normal right ventricular systolic function.
Mild mitral regurgitation.
Moderate tricuspid regurgitation. Estimated pulmonary artery pressure of 55-60
mmHg. Assuming a right atrial pressure of 15 mmHg.
ECHO 2009. D septum and PASP 55 mm.
[2024-12-20] MEDS: THERAGRAN 1 TABLET PO (17:07)
[2024-12-20] MEDS: ZOLOFT 50 MG PO (17:07)
[2024-12-20] MEDS: LIPITOR 20 MG PO (17:07)
[2024-12-20] MEDS: SOLU-MEDROL PF 40 MG IV (17:20)
[2024-12-20 20:34] LABS: B.E. 7.5 mmol/L; HCO3 36.4 mmol/L (21-28); O2 Saturation % 95.9 % (94-98); O2 Therapy Air 6L; PO2 67 mmHg (83-108)
[2024-12-20 20:35] LABS: PCO2 74 mmHg (35-48)
[2024-12-21] VITALS (15 sets, daily range): BP systolic 95–142; BP diastolic 54–94; PULSE 2–83; BMI 30.5
[2024-12-21] MEDS: VIBRAMYCIN 260 MG IV ×2 (01:06→13:11)
[2024-12-21] MEDS: HEPARIN 25000 UNITS/250 ML IV (01:06)
--- NOTE | 2024-12-21 01:36 | PTCARENOTE ---
assumed care of patient. pt is AAOx3, flat affect. able to make needs known. bed alarm remains on d/t fall a few days ago. VSS. received patient on 6L- 90%, oxygen increased to 8L MF, now 93%. pt can be tachypneic at times, SOB on exertion. using
urinal at bedside. IV heparin running at 14ml/hr, for PTT in the AM. a-fib on the monitor. no complaints of pain. care ongoing.
[2024-12-21] MEDS: UNASYN IV ×4 (05:19→23:10)
[2024-12-21 05:55] LABS: % Basophils 0.3 % (0-2); % Immature Granulocytes 3.1 % (0-0.5); % Lymphocytes 5.2 % (20.5-51.1); % Monocytes 3.7 % (1.7-9.3); % Neutrophils 87.7 % (42.2-75.2); Absolute Immature Granulocytes 0.2 10^3/uL (0-0.05); Absolute Lymphocytes 0.4 10^3/uL (1.2-3.4); Absolute Monocytes 0.3 10^3/uL (0.1-0.6); Absolute Neutrophils 6.2 10^3/uL (1.4-6.5); Hematocrit 37.2 % (39.0-52.0); Hemoglobin 11.8 g/dL (13.0-18.0); Mean Corp Hgb Conc. 31.7 g/dL (33.0-37.0); Mean Corpuscular Hgb 32.2 pg (27.0-31.0); Mean Corpuscular Volume 101.6 fL (80.0-94.0); Nucleated Red Blood Cells % 0 % (-); Platelet Count 186 10^3/uL (130-400); Red Blood Cell Count 3.66 10^6/uL (4.70-6.10); Red Cell Dist. Width 14.9 % (11.5-14.5); White Blood Cell Count 7.1 10^3/uL (4.8-10.8)
[2024-12-21 06:17] LABS: ALT (SGPT) 66 U/L (0-50); AST (SGOT) 56 U/L (17-59); Albumin 2.7 g/dl (3.5-5.0); Alkaline Phosphatase 70 U/L (38-126); Blood Urea Nitrogen 27 mg/dl (9-20); Calcium 8.7 mg/dl (8.4-10.2); Carbon Dioxide 38 mmol/L (22-30); Chloride 104 mmol/L (98-107); Estimated Creatinine Clearance 84 ml/min; Glucose 159 mg/dl (70-99); Potassium 5.1 mmol/L (3.5-5.1); Sodium 141 mmol/L (135-145); Total Bilirubin 0.5 mg/dl (0.2-1.3); Total Protein 5.1 g/dl (6.3-8.2); eGFR > 60.00
[2024-12-21] MEDS: DUONEB 3 ML INH ×4 (07:38→19:30)
[2024-12-21] MEDS: ELIQUIS 5 MG PO ×2 (08:04→20:01)
[2024-12-21] MEDS: PROTONIX 40 MG PO (08:04)
[2024-12-21] MEDS: DELTASONE 40 MG PO (08:04)
[2024-12-21] MEDS: TOPROL XL 50 MG PO ×2 (08:04→20:00)
--- NOTE | 2024-12-21 08:14 | W.PN.HOSP.TC ---
Today's Communication/Plan
-
prednisone taper
PPI ppx
cont Abx
switch to Eliquis
restart Lisinopril now on 5mg to avoid hypotension
Assessment / Plan
Assessment / Plan
74yo M with PMHX of FATOUMATA on 3L nocturnal O2, anxiety, HLD, HTN, COPD came with palpitarions, managed for Afib with RVR and found hypoxia with COPD exacerbation with large RLL pneumonia
A/P:
#Afib with RVR
#Non-ischemic myocardial injury
#NEw HFrEF, not in exacerbation
New onset
Cardio consult
Echo with hypokinesis and EF 35-40% and moderate TR
BB for control, TSH WNL
due to low BP unable fully start GDMT
Heparin drip switch to DOAC on 12/21/24 (as patient had BM and no concern for red blood on paper or black stools)
#Epistaxis/hemoptysis
resolved
monitor
#Fall with AMS, possible in-hospital delirium
CT head without acute bleed
#CAP with acute on chronic hypoxic and hypercapnic respiratory failure
#COPD exacerbation
Prednisone as per pulm consult. Repeat imaging in 8-12 weeks
Large right lower lobe consolidation with air bronchograms as well as smaller right middle lobe and inferior right upper lobe opacification highly likely inflammatory/infectious extending to the right hilum with some likely small volume right hilar
lymphadenopathy
switched to Zosyn, now Unasyn/DOxy (cover possible aspiration)
Sputum Cx NTD
Bcx NTD
LEgionella and S.pneumonia urinary Ag neg
Wean off O2 to 6L
Antitussives
cont bronchodilators
#MAXIMILIANO
resolved
restart Lisinopril - now on 5mg to avoid hypotension
follow Cr
#mild anemia with macrocytosis
check B12, folate
might need outpatient hematology
#Anxiety
#HLD
#HX of hypertension
stop Amlodipine to allow rate control with BB
cont sertraline
#Chonic transaminitis
at least since 2008
outpatient follow up with PCP
HepC neg
DVT ppx Eliquis
Full code
I have spent at least 37min reviewing chart, test results, communication with consultants and providing direct patient care
Anticipated Discharge: 24 - 48 hours
Subjective/Interval History
-
Date of Service: December 21, 2024
Objective Data
-
Labs:
Laboratory Results
12/20/24 12/21/24 12/21/24
20:24 05:27 09:00
WBC 7.1
Hgb 11.8 L
Hct 37.2 L
Plt Count 186 D
APTT Pending
HCO3 36.4 H
Sodium 141
Potassium 5.1
Chloride 104
Carbon Dioxide 38 H
BUN 27 H
Creatinine 0.9
Glucose 159 H
Calcium 8.7
Total Bilirubin 0.5
AST 56
ALT 66 H
Alkaline Phosphatase 70
Vital Signs:
Vital Signs
Temp Pulse Resp BP Pulse Ox
98.6 F 85 20 128/81 95
12/21/24 03:30 12/21/24 08:04 12/21/24 07:43 12/21/24 08:04 12/21/24 07:43
I&O
12/20/24 12/21/24 12/22/24
06:59 06:59 06:59
Intake Total 1060 / 1060 1999 / 1999
Output Total 1250 / 1250 1375 / 1375
Balance -190 / -190 625 / 625
Review of Systems
-
History Source: Patient
All other systems: Reviewed and negative
Physical Exam
-
General: No Apparent Distress
HEENT: Normocephalic
Respiratory: Wheezes
GI: Soft and Nondistended
Neuro: Awake, Alert, Oriented and AO x 3
Psych: Calm
--- NOTE | 2024-12-21 08:55 | W.PN.PUL3 ---
Today's Communication / Plan
-
Continue Unasyn, doxycycline
Prednisone for 5 days
Wean oxygen
Out of bed to chair, ambulate
Assessment
-
#1 Multifocal pneumonia, right middle and right lower lobe.
- Dense consolidation noted on x-ray as well as CT scan
- Sputum culture and respiratory larry. MRSA screen negative. Blood cultures have stayed negative. Influenza A and B screen negative. COVID-19 testing negative.
- White count has normalized down to 7.1, afebrile
- Currently on Unasyn and doxycycline, continue
- Negative streptococcal antigen and Legionella urine antigen
- Considering extent of consolidation and severity of his respiratory failure, started prednisone 40 mg daily for 5 doses.
- Patient will need a follow-up imaging in 8 to 12 weeks to evaluate for any underlying mass. LDCT from 2023 unremarkable
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 Baseline severe obstruction with moderately reduced DLCO.
- Uses oxygen at night at baseline, 3 L at bedtime. Also has been on Anoro as outpatient.
- VBG 12/19 shows 7.24/83 suggestive of acute on chronic hypercapnia. Baseline CO2 appears to be around 70s.
- Currently mental status normal, clinically not suggestive of any hypercapnic encephalopathy. Follow-up ABG for further evaluation
- Continue DuoNeb 4 times daily for now. Hold Anoro while inpatient
- No wheezing on exam. Prednisone continues for underlying severe pneumonia
#3. Pulmonary hypertension. Suspect primarily group 3, with possibly component of group 2.
- Echocardiogram from 2008 showed elevated pulmonary artery systolic pressure in 50s, which have been essentially unchanged on most recent echocardiogram in 2024.
- RV systolic function however appears to be preserved.
- Continue supplemental oxygen. Target saturation would be more than 90%
- No indication for vasodilator therapy. Continue to optimize underlying obstructive airway disease and volume status
Other medical diagnoses:
- Atrial fibrillation with rapid ventricular rate. On metoprolol, heparin drip. Cardiology on case
- Elevated troponin, felt to be related to myocardial injury due to pneumonia, fever. Cardiology service on case
- Newly detected cardiomyopathy, EF 35 to 40%.
GI prophylaxis: Remains on pantoprazole
DVT prophylaxis: On Eliquis 5 mg twice a day
Data:
CT Chest 11/2024: Large right lower lobe consolidation with air bronchograms as well as smaller right middle lobe and inferior right upper lobe opacification highly likely inflammatory/infectious extending to the right hilum with some likely small
volume right hilar lymphadenopathy. Highly recommend follow-up Chest CT to confirm resolution of right lung opacification and to follow-up evaluation of right hilum.
Changes of emphysema again seen.
Minor left lung opacities most likely representing subsegmental atelectasis. Left lower lobe pneumonitis cannot be excluded.
CT head 11/2024: Negative
PFT 06/2022: FVC 68%, FEV1 38%, FEV1/FVC 40. Positive bronchodilator response. RV is 130% of predicted. DLCO 50%. Severe obstruction and moderately reduced DLCO.
ECHO 11/2024: Normal left ventricular chamber size. Mildly to moderately reduced left
ventricular systolic function. Left ventricular ejection fraction is 35-40%.
Global hypokinesis. Mild concentric left ventricular hypertrophy.
Normal right ventricular size. Normal right ventricular systolic function.
Mild mitral regurgitation.
Moderate tricuspid regurgitation. Estimated pulmonary artery pressure of 55-60
mmHg. Assuming a right atrial pressure of 15 mmHg.
ECHO 2009. D septum and PASP 55 mm.
Subjective Data
-
Date of Service:
Date of Service: December 21, 2024
Subjective:
Patient is subjectively improved. Denies shortness of breath, chest pain, nausea, abdominal pain. Minimal cough. Appears to be in good spirits
Objective Data
Data Reviewed
Vital Signs / I&O / Oxygen:
Vital Signs
Temp Pulse Resp BP Pulse Ox
98.6 F 85 20 128/81 95
12/21/24 03:30 12/21/24 08:04 12/21/24 07:43 12/21/24 08:04 12/21/24 07:43
Intake and Output
12/20/24 12/21/24 12/22/24
06:59 06:59 06:59
Intake Total 1060 / 1060 1999 / 1999
Output Total 1250 / 1250 1375 / 1375
Balance -190 / -190 625 / 625
SaO2 95
Nasal Cannula flow liters per 6
minute
Physical Exam
General: Comfortable
HEENT: Normocephalic and Anicteric
Cardiovascular: S1-S2, Regular Rhythm, Murmur (n) and Rub (n)
Respiratory: Wheeze (n), Crackles (Few at right base), Rhonchi (n) and Non-Labored Respirations
GI: Soft, Non Distended and Non Tender
Neurology: Awake, Alert and No Motor Deficits (Able to sit up without assistance)
Skin: Cyanosis (n), Jaundice (n) and Rash (n)
Labs/Micro/Reports
Lab Data
12/21/24 05:27
12/21/24 05:27
Laboratory Results
12/20/24 12/20/24
09:11 20:24
APTT 92.8 H
pH 7.30 L
pCO2 74 H*
pO2 67 L
HCO3 36.4 H
O2 Delivery Level Air 6l
Microbiology
12/20/24 17:06 Urine Legionella Urinary Antigen - Final
Negative for Legionella pneumophila Serogroup 1 antigen.
A negative result does not rule out the possiblity of
Legionella infection due to other serogroups or species of
Legionella. Clinical correlation is recommended.
12/20/24 17:06 Urine Streptococcus pneumoniae Antigen (M - Final
Negative for Streptococcus pneumoniae antigen.
A negative result does not exclude infection with
Streptococcus pneumoniae. Clinical correlation is
recommended.
12/17/24 07:30 Blood/Venous Blood Culture - Preliminary
No Growth in 4 days- Final report to follow
12/17/24 07:13 Blood/Venous Blood Culture - Preliminary
No Growth in 4 days- Final report to follow
12/18/24 03:34 Sputum Respiratory Culture - Final
Usual Respiratory Larry
12/18/24 03:34 Sputum Gram Stain - Final
--- NOTE | 2024-12-21 09:23 | W.PN.CARDCBS ---
Today's Communication / Plan
-
Remains in AFib
Cont Toprol XL 25 mg BID. HRs stable
Some tachycardia is permissible in the setting of sepsis.
Cont rate control strategy for now. Goal HR <110 bpm.
Continue Eliquis. He will contact our office if he has any falls. he wants to continue anticoagulation.
Echocardiogram shows moderately reduced LV systolic function and elevated filling pressures
In the setting of sepsis blood pressure has been low and pt unlikely to tolerate guideline directed medical therapy
Cont med tx for now for nonMI troponin, peak 0.12. Eventual ischemic eval, likely outpt after resolution of sepsis.
Bp stable on Toprol
He was on amlodipine and lisinopril as outpatient.
Cont broad spectrum IV Abx as per primary service.
Please recall if needed
will set up outpt follow up
Impression / Plan
-
.
PCP: Celia Casas
Diet Aid: None prior to arrival, initial consultation Dr. Dannie Wright
Impression:
Presents 12/17/2024 with progressively worsening cough, shortness of breath, fever
Hypoxic respiratory insufficiency
Right lower lobe pneumonia
Atrial fibrillation with rapid ventricular response, appears to be new diagnosis
MAXIMILIANO, creatinine 1.6, resolved with IVF
Leukocytosis
Abnormal troponin, likely nonischemic myocardial injury secondary to acute pneumonia, fever, MAXIMILIANO, peak 0.12
New CM, EF 35-40%
Hypertension
Hyperlipidemia
COPD/emphysema
Chronic oxygen at home 3 L via nasal cannula primarily at night
Echo 2008: EF 55 to 60%. D-shaped ventricle seen with elevated right heart pressures. RV enlarged with reduced function. Enlarged right atrium. Mildly enlarged left atrium. Mild MR. Moderate AI. Moderate TR with severe pulmonary hypertension
with PAP 55 mmHg.
Echo Dec 17 2024: Normal left ventricular chamber size. Mildly to moderately reduced left ventricular systolic function. Left ventricular ejection fraction is 35-40%. Global hypokinesis. Mild concentric left ventricular hypertrophy. Normal right
ventricular size. Normal right ventricular systolic function. Mild mitral regurgitation. Moderate tricuspid regurgitation. Estimated pulmonary artery pressure of 55-60 mmHg. Assuming a right atrial pressure of 15 mmHg.
Plan:
Presents 12/17/2024, 74-year-old man past medical history of COPD on home O2 who presenting with cough, dyspnea and fever and found to have right lower lobe pneumonia.
Admission ECG showed atrial fibrillation with rapid ventricular response which is a new diagnosis for him
Remains in AFib
Cont Toprol XL 25 mg BID. HRs stable
Some tachycardia is permissible in the setting of sepsis.
Cont rate control strategy for now. Goal HR <110 bpm.
Continue Eliquis. He will contact our office if he has any falls. he wants to continue anticoagulation.
Echocardiogram shows moderately reduced LV systolic function and elevated filling pressures
In the setting of sepsis blood pressure has been low and pt unlikely to tolerate guideline directed medical therapy
Cont med tx for now for nonMI troponin, peak 0.12. Eventual ischemic eval, likely outpt after resolution of sepsis.
Bp stable on Toprol
He was on amlodipine and lisinopril as outpatient.
Cont broad spectrum IV Abx as per primary service.
Please recall if needed
will set up outpt follow up
HPI 12/17/2024:
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
department for progressively worsening cough, shortness of breath and fever. Patient's symptoms started approximately 3 to 4 days ago and have progressively gotten worse over the last 24 hours. Patient admits to productive cough with clear sputum.
He started having increased oxygen demand at home wearing 3 L of oxygen [id number]. He follows with Dr. Limon of pulmonary for COPD and reports he is never seen cardiology. Patient noted to be febrile with temp of 103.3. Chest x-ray
consistent with severe right lower lobe pneumonia and severe bilateral upper lobe emphysema. EKG showed atrial fibrillation with rapid ventricular response, troponin 0.124. MAXIMILIANO with creatinine of 1.6, elevated white count, proBNP 3780. TSH was
1.15 and COVID negative
Progress Note - Diet Aid
Subjective
Date of Service: December 21, 2024
Pt seen and examined. No complaints. No chest pain or shortness of breath.
Objective
Labs:
12/21/24 05:27
12/21/24 05:
Labs
Hgb 11.8 g/dL (13.0-18.0) L 12/21/24 05:
Hct 37.2 % (39.0-52.0) L 12/21/24 05:27
Plt Count 186 10^3/uL (130-400) D 12/21/24 05:27
APTT 92.8 Sec (23.4-35.0) H 12/20/24 09:11
Sodium 141 mmol/L (135-145) 12/21/24 05:27
Potassium 5.1 mmol/L (3.5-5.1) 12/21/24 05:27
BUN 27 mg/dl (9-20) H 12/21/24 05:27
Creatinine 0.9 mg/dL (0.7-1.3) 12/21/24 05:27
Glucose 159 mg/dl (70-99) H 12/21/24 05:27
Troponins
12/19/24 12/19/24 12/19/24
15:20 17:48 21:09
Troponin I 0.043 H* 0.077 H* D 0.072 H*
Vital Signs and I&O:
Vital Signs
Temp Pulse Resp BP Pulse Ox
98.6 F 85 20 128/81 95
12/21/24 03:30 12/21/24 08:04 12/21/24 07:43 12/21/24 08:04 12/21/24 07:43
Vital Signs
Temp Pulse Resp BP Pulse Ox
98.6 F 85 20 128/81 95
12/21/24 03:30 12/21/24 08:04 12/21/24 07:43 12/21/24 08:04 12/21/24 07:43
Intake & Output
12/19/24 12/20/24 12/21/24 12/22/24
06:59 06:59 06:59 06:59
Intake Total 740 / 740 1060 / 1060 1999 / 1999
Output Total 950 / 950 1250 / 1250 1375 / 1375
Balance -210 / -210 -190 / -190 625 / 625
Physical Exam
Physical Exam
General: No acute distress, AAOX3
Neck: Negative JVD
Heart: Irregularly irregular, Negative S3 positive S1/S2, Negative S4, No murmur
Lungs: CTA b/l, negative wheezes/rales/rhonchi
Abd: Positive BS, NT/ND, neg rebound/rigidity/guarding
Ext: Negative cyanosis/clubbing/edema
Neuro: nonfocal
[2024-12-21 10:10] LABS: Folate 17.6 ng/ml (2.76-20); Vitamin B12 863 pg/ml (239-931)
--- NOTE | 2024-12-21 15:05 | PTCARENOTE ---
Patient AOx3. Patient has flat affect. Bed and chair alarm on and audible. A fib on monitor. BP stable. 6L NC with SpO2 greater than 92%. Occasional strong cough. Assist x1 with RW when OOB. Heparin gtt d/c per order. Call lockhart within reach, bed in
lowest position, and bed of wheels locked.
[2024-12-21] MEDS: LIPITOR 20 MG PO (17:54)
[2024-12-21] MEDS: THERAGRAN 1 TABLET PO (17:54)
[2024-12-21] MEDS: ZOLOFT 50 MG PO (17:55)
[2024-12-21] MEDS: ZESTRIL 5 MG PO (17:55)
--- NOTE | 2024-12-21 22:43 | PTCARENOTE ---
assumed care of patient. pt is AAOx3- able to make needs known. VSS. on 6LNC, 94%. placed on bipap HS. pt denies any pain. productive cough noted, but pt refusing any cough medication at this time. using urinal at bedside without issues. bed alarm
on. care ongoing.
[2024-12-22] VITALS (13 sets, daily range): BP systolic 114–169; BP diastolic 56–99; PULSE 2–80; O2SAT 93; BMI 30.1
[2024-12-22] MEDS: VIBRAMYCIN 260 MG IV (01:14)
[2024-12-22 05:11] LABS: Blood Urea Nitrogen 29 mg/dl (9-20); Calcium 8.8 mg/dl (8.4-10.2); Chloride 104 mmol/L (98-107); Estimated Creatinine Clearance 74 ml/min; Glucose 127 mg/dl (70-99); Potassium 4.6 mmol/L (3.5-5.1); Sodium 146 mmol/L (135-145); eGFR > 60.00
[2024-12-22 05:21] LABS: Carbon Dioxide 36 mmol/L (22-30)
[2024-12-22] MEDS: UNASYN IV ×4 (05:23→23:39)
[2024-12-22] MEDS: DUONEB 3 ML INH ×4 (07:51→19:59)
[2024-12-22] MEDS: ELIQUIS 5 MG PO ×2 (08:22→19:45)
[2024-12-22] MEDS: TOPROL XL 50 MG PO ×2 (08:22→19:45)
[2024-12-22] MEDS: DELTASONE 40 MG PO (08:22)
[2024-12-22] MEDS: PROTONIX 40 MG PO (08:22)
--- NOTE | 2024-12-22 08:35 | PTCARENOTE ---
Patient received from shift coordinator. Patient resting comfortably in bed. Was on BiPAP HS, but now on 6L N/C, will continue to attempt to wean. No events noted overnight. No complaints of pain at this time. OOB to chair. Heparin gtt was stopped
and transitioned to Eliquis. Continuing ABX. No testing scheduled at this time. Call lockhart in reach.
--- NOTE | 2024-12-22 09:58 | W.PN.PUL3 ---
Today's Communication / Plan
-
Continue with efforts to wean oxygen
91 to 92% on 4 L
PT/OT, ambulate
Remains on prednisone
Disposition efforts
Assessment
-
#1 Multifocal pneumonia, right middle and right lower lobe.
- Dense consolidation noted on x-ray as well as CT scan
- Sputum culture and respiratory larry. MRSA screen negative. Blood cultures have stayed negative. Influenza A and B screen negative. COVID-19 testing negative.
- White count has normalized down to 7.1, afebrile
- Currently on Unasyn and doxycycline, continue
- Negative streptococcal antigen and Legionella urine antigen
- Considering extent of consolidation and severity of his respiratory failure, started prednisone 40 mg daily for 5 doses.
- Patient will need a follow-up imaging in 8 to 12 weeks to evaluate for any underlying mass. LDCT from 2023 unremarkable
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 Baseline severe obstruction with moderately reduced DLCO.
- Uses oxygen at night at baseline, 3 L at bedtime. Also has been on Anoro as outpatient.
- VBG 12/19 shows 7.24/83 suggestive of acute on chronic hypercapnia. Baseline CO2 appears to be around 70s.
- Currently mental status normal, clinically not suggestive of any hypercapnic encephalopathy. Follow-up ABG for further evaluation
- Continue DuoNeb 4 times daily for now. Hold Anoro while inpatient
- No wheezing on exam. Prednisone continues for underlying severe pneumonia
- Currently on 6 L. Decrease to 4 L, 91 to 92%
#3. Pulmonary hypertension. Suspect primarily group 3, with possibly component of group 2.
- Echocardiogram from 2008 showed elevated pulmonary artery systolic pressure in 50s, which have been essentially unchanged on most recent echocardiogram in 2024.
- RV systolic function however appears to be preserved.
- Continue supplemental oxygen. Target saturation would be more than 90%, wean oxygen. Was on 6 L during my evaluation this morning, weaned down to 4 L, 91 to 92%
- No indication for vasodilator therapy. Continue to optimize underlying obstructive airway disease and volume status
Other medical diagnoses:
- Atrial fibrillation with rapid ventricular rate. On metoprolol, heparin drip. Cardiology on case
- Elevated troponin, felt to be related to myocardial injury due to pneumonia, fever. Cardiology service on case
- Newly detected cardiomyopathy, EF 35 to 40%.
Reviewed plan with at bedside
feels he is much improved
GI prophylaxis: Remains on pantoprazole
DVT prophylaxis: On Eliquis 5 mg twice a day
Data:
CT Chest 11/2024: Large right lower lobe consolidation with air bronchograms as well as smaller right middle lobe and inferior right upper lobe opacification highly likely inflammatory/infectious extending to the right hilum with some likely small
volume right hilar lymphadenopathy. Highly recommend follow-up Chest CT to confirm resolution of right lung opacification and to follow-up evaluation of right hilum.
Changes of emphysema again seen.
Minor left lung opacities most likely representing subsegmental atelectasis. Left lower lobe pneumonitis cannot be excluded.
CT head 11/2024: Negative
PFT 06/2022: FVC 68%, FEV1 38%, FEV1/FVC 40. Positive bronchodilator response. RV is 130% of predicted. DLCO 50%. Severe obstruction and moderately reduced DLCO.
ECHO 11/2024: Normal left ventricular chamber size. Mildly to moderately reduced left
ventricular systolic function. Left ventricular ejection fraction is 35-40%.
Global hypokinesis. Mild concentric left ventricular hypertrophy.
Normal right ventricular size. Normal right ventricular systolic function.
Mild mitral regurgitation.
Moderate tricuspid regurgitation. Estimated pulmonary artery pressure of 55-60
mmHg. Assuming a right atrial pressure of 15 mmHg.
ECHO 2009. D septum and PASP 55 mm.
Subjective Data
-
Date of Service:
Date of Service: December 22, 2024
Subjective:
Patient is feeling better. Sitting in chair, eating breakfast. Has mild dry cough, mildly productive improving. Denies chest pain, nausea. Moving bowels. at bedside patient appears to be in good spirits
Objective Data
Data Reviewed
Vital Signs / I&O / Oxygen:
Vital Signs
Temp Pulse Resp BP Pulse Ox
97.4 F 79 14 150/97 97
12/22/24 07:29 12/22/24 08:22 12/22/24 07:53 12/22/24 08:22 12/22/24 06:00
Intake and Output
12/21/24 12/22/24 12/23/24
06:59 06:59 06:59
Intake Total 1999 / 1999 2370 / 2370
Output Total 1375 / 1375 2300 / 2300 200 / 200
Balance 625 / 625 70 / 70 -200 / -200
SaO2 97
Nasal Cannula flow liters per 8
minute
Physical Exam
General: Comfortable
HEENT: Normocephalic and Anicteric
Cardiovascular: S1-S2, Regular Rhythm, Murmur (n) and Rub (n)
Respiratory: Wheeze (n), Crackles (Few at right base), Rhonchi (n) and Non-Labored Respirations
GI: Soft, Non Distended and Non Tender
Neurology: Awake, Alert and No Motor Deficits (Able to sit up without assistance)
Skin: Cyanosis (n), Jaundice (n) and Rash (n)
Labs/Micro/Reports
Lab Data
12/21/24 05:27
12/22/24 04:40
Laboratory Results
12/21/24
09:00
APTT Cancelled
Microbiology
12/17/24 07:30 Blood/Venous Blood Culture - Final
No Growth - Final Report
12/17/24 07:13 Blood/Venous Blood Culture - Final
No Growth - Final Report
12/20/24 17:06 Urine Legionella Urinary Antigen - Final
Negative for Legionella pneumophila Serogroup 1 antigen.
A negative result does not rule out the possiblity of
Legionella infection due to other serogroups or species of
Legionella. Clinical correlation is recommended.
12/20/24 17:06 Urine Streptococcus pneumoniae Antigen (M - Final
Negative for Streptococcus pneumoniae antigen.
A negative result does not exclude infection with
Streptococcus pneumoniae. Clinical correlation is
recommended.
12/18/24 03:34 Sputum Respiratory Culture - Final
Usual Respiratory Larry
12/18/24 03:34 Sputum Gram Stain - Final
--- NOTE | 2024-12-22 10:16 | PN.CDI ---
CDI
- -
CDI:
Physician Documentation Request
Admit Date: 12/17/24 10:01
Dear Doctor Ricardo,
Patient admitted with pneumonia and acute on chronic hypoxic and hypercapnic respiratory failure.
12/21 PN, 'large RLL pneumonia...now Unasyn/Doxy (cover possible aspiration)...Wean off O2 to 6L'
On admission, T max 103.3 and HR> 90.
Please clarify which of the following most accurately describes the status of the patient's infection:
Severe sepsis, POA
Sepsis, POA
Pneumonia only
Other
Sepsis
- Systemic manifestations of infection, with 2 or more SIRS criteria which include:
- Fever >100.9 degrees F or hypothermia < 96.8 degrees F
- Leukocytosis - WBC > 12,000 or leukopenia - WBC < 4,000 or > 10% bands
- Tachycardia > 90 beats per minute
- Tachypnea - RR > 20 breaths per minute or PaCO2 , 32mmHg
Source: Merck Manual 2013
- Indicate the known or suspected organism
- Indicate the known or suspected underlying infection, such as pneumonia
Severe Sepsis
- Sepsis with associated acute organ dysfunction, such as renal or respiratory failure
- Documentation should indicate the association between the sepsis and the organ dysfunction
Localized Infection Only, Without Systemic Illness
- indicate the site/source, such as pneumonia
Other
Use of terms such as suspected, likely, concern for, or probable (associated with a specific diagnosis that is being evaluated, monitored, or treated as if it exists) are acceptable and can be coded in the inpatient setting, when documented at the
time of discharge.
Thank you,
Samanta Freeman BSN,RN,CCDS
CDI Specialist
Available via tiger text
Please use your independent medical judgment in providing your response.
--- NOTE | 2024-12-22 16:18 | W.PN.HOSP.TC ---
Today's Communication/Plan
-
Improving, possible d/c on oral abx in the next 48h
Assessment / Plan
Assessment / Plan
74yo M with PMHX of FATOUMATA on 3L nocturnal O2, anxiety, HLD, HTN, COPD came with palpitarions, managed for Afib with RVR and found hypoxia with COPD exacerbation with large RLL pneumonia
A/P:
#Afib with RVR, new onset, unspecified
#Non-ischemic myocardial injury
#NEw HFrEF, not in exacerbation
New onset
Cardio consult
Echo with hypokinesis and EF 35-40% and moderate TR
BB for control, TSH WNL
due to low BP unable fully start GDMT
Heparin drip switch to DOAC on 12/21/24 (as patient had BM and no concern for red blood on paper or black stools)
#Epistaxis/hemoptysis
resolved
monitor
#Fall with AMS, possible in-hospital delirium
CT head without acute bleed
#sepsis on admission 2/2 CAP with acute on chronic hypoxic and hypercapnic respiratory failure
#COPD exacerbation
Prednisone as per pulm consult. Repeat imaging in 8-12 weeks
Large right lower lobe consolidation with air bronchograms as well as smaller right middle lobe and inferior right upper lobe opacification highly likely inflammatory/infectious extending to the right hilum with some likely small volume right hilar
lymphadenopathy
switched to Zosyn, now Unasyn/DOxy (cover possible aspiration)
Sputum Cx NTD
Bcx NTD
Legionella and S.pneumonia urinary Ag neg
Wean off O2 to 6L
Antitussives
cont bronchodilators
#MAXIMILIANO
resolved
restart Lisinopril - now on 5mg to avoid hypotension
follow Cr
#mild anemia with macrocytosis
B12, folate wnl
need outpatient hematology
#Anxiety
#HLD
#HX of hypertension
stop Amlodipine to allow rate control with BB
cont sertraline
#Chronic transaminitis
at least since 2008
outpatient follow up with PCP
HepC neg
#Ambulatory deficiency
PT/OT
DVT ppx Eliquis
Full code
I have spent at least 37min reviewing chart, test results, communication with consultants and providing direct patient care
Anticipated Discharge: 24 - 48 hours
Subjective/Interval History
-
Date of Service: December 22, 2024
Objective Data
-
Labs:
Laboratory Results
12/22/24
04:40
Sodium 146 H
Potassium 4.6
Chloride 104
Carbon Dioxide 36 H
BUN 29 H
Creatinine 0.9
Glucose 127 H
Calcium 8.8
Vital Signs:
Vital Signs
Temp Pulse Resp BP Pulse Ox
97.5 F 80 20 150/97 93
12/22/24 15:25 12/22/24 11:35 12/22/24 11:35 12/22/24 08:22 12/22/24 11:35
I&O
12/21/24 12/22/24 12/23/24
06:59 06:59 06:59
Intake Total 1999 / 1999 2370 / 2370
Output Total 1375 / 1375 2300 / 2300 200 / 200
Balance 625 / 625 70 / 70 -200 / -200
Review of Systems
-
History Source: Patient
All other systems: Reviewed and negative
Physical Exam
-
General: No Apparent Distress
HEENT: Normocephalic
Respiratory: Clear to Auscultation
Neuro: Awake, Alert, Oriented and AO x 3
Psych: Calm
[2024-12-22] MEDS: ZOLOFT 50 MG PO (18:43)
[2024-12-22] MEDS: THERAGRAN 1 TABLET PO (18:43)
[2024-12-22] MEDS: ZESTRIL 5 MG PO (18:43)
[2024-12-22] MEDS: LIPITOR 20 MG PO (18:43)
[2024-12-22] MEDS: VIBRAMYCIN 100 MG PO (19:45)
--- NOTE | 2024-12-22 19:56 | PTCARENOTE ---
Unable to verify accuracy of vital signs saved from 0800 to 1800. This RN was not present.
[2024-12-23] VITALS: BP 122/73
--- NOTE | 2024-12-23 00:28 | PTCARENOTE ---
Patient wore Bipap for about two hours before taking off himself. when asked why he removed the bipap, pt stated 'because I was done with it'. Educated pt on the importance of using the call lockhart for assistance. pt lacks overall insight. pt back on
3L NC. bed alarm set. call lockhart within reach.
[2024-12-23 02:00] VITALS: BP 143/67
[2024-12-23 04:00] VITALS: BP 131/71
[2024-12-23] MEDS: UNASYN IV ×2 (05:20→13:52)
[2024-12-23 05:33] VITALS: BMI 30.3
[2024-12-23 05:33] LABS: Blood Urea Nitrogen 28 mg/dl (9-20); Calcium 8.9 mg/dl (8.4-10.2); Chloride 102 mmol/L (98-107); Estimated Creatinine Clearance 84 ml/min; Glucose 110 mg/dl (70-99); Potassium 4.4 mmol/L (3.5-5.1); Sodium 145 mmol/L (135-145); eGFR > 60.00
[2024-12-23 05:44] LABS: Carbon Dioxide 42 mmol/L (22-30)
[2024-12-23 06:00] VITALS: BP 140/95
[2024-12-23] MEDS: DUONEB 3 ML INH ×2 (07:56→11:07)
[2024-12-23] MEDS: TOPROL XL 50 MG PO (08:25)
[2024-12-23] MEDS: DELTASONE 40 MG PO (08:26)
[2024-12-23] MEDS: PROTONIX 40 MG PO (08:26)
[2024-12-23] MEDS: VIBRAMYCIN 100 MG PO (08:26)
[2024-12-23] MEDS: ELIQUIS 5 MG PO (08:26)
--- NOTE | 2024-12-23 08:34 | PTCARENOTE ---
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 Patient resting comfortably in bed. Was on BiPAP HS for approx 2 hours, and now on 3L N/C, will continue to attempt to wean. No events noted overnight. No complaints of pain at this time. OOB to chair.
Continuing Eliquis and ABX. No testing scheduled at this time. Downgrade today or possible discharge. Call lockhart in reach.
--- NOTE | 2024-12-23 09:32 | W.PN.PUL3 ---
Today's Communication / Plan
-
patient continues to improve
Transition to oral antibiotic, to complete 7-10 day course
remains on prednisone 40 mg, last dose 12/25, To complete 5 days
Remains on blood thinner, GERD therapy
Patient will require follow-up imaging in the next 6-8 weeks
He will require follow-up in our office in the next 1-2 weeks to confirm continued improvement. Well-known to Dr. Limon
follow-up information left in chart
Disposition efforts
Assessment
-
#1 Multifocal pneumonia, right middle and right lower lobe.
- Dense consolidation noted on x-ray as well as CT scan
- Sputum culture and respiratory larry. MRSA screen negative. Blood cultures have stayed negative. Influenza A and B screen negative. COVID-19 testing negative.
- White count has normalized down to 7.1, afebrile
- Currently on Unasyn and doxycycline, continue
- Negative streptococcal antigen and Legionella urine antigen
- Considering extent of consolidation and severity of his respiratory failure, started prednisone 40 mg daily for 5 doses. discontinue after
- Patient will need a follow-up imaging in 8 to 12 weeks to evaluate for any underlying mass. LDCT from 2023 unremarkable
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 Baseline severe obstruction with moderately reduced DLCO.
- Uses oxygen at night at baseline, 3 L at bedtime. Also has been on Anoro as outpatient.
- VBG 12/19 shows 7. suggestive of acute on chronic hypercapnia. Baseline CO2 appears to be around 70s.
- Currently mental status normal, clinically not suggestive of any hypercapnic encephalopathy. Follow-up ABG for further evaluation
- Continue DuoNeb 4 times daily for now. Hold Anoro while inpatient
- No wheezing on exam. Prednisone continues for underlying severe pneumonia
- Currently on 3 L. this is his baseline
#3. Pulmonary hypertension. Suspect primarily group 3, with possibly component of group 2.
- Echocardiogram from 2008 showed elevated pulmonary artery systolic pressure in 50s, which have been essentially unchanged on most recent echocardiogram in 2024.
- RV systolic function however appears to be preserved.
- Continue supplemental oxygen. Target saturation would be more than 90%, wean oxygen. Was on 6 L during my evaluation this morning, weaned down to 4 L, 91 to 92%
- No indication for vasodilator therapy. Continue to optimize underlying obstructive airway disease and volume status
Other medical diagnoses:
- Atrial fibrillation with rapid ventricular rate. On metoprolol, heparin drip. Cardiology on case
- Elevated troponin, felt to be related to myocardial injury due to pneumonia, fever. Cardiology service on case
- Newly detected cardiomyopathy, EF 35 to 40%.
Reviewed plan with at bedside
feels he is much improved
Disposition efforts
GI prophylaxis: Remains on pantoprazole
DVT prophylaxis: On Eliquis 5 mg twice a day
Data:
CT Chest 11/2024: Large right lower lobe consolidation with air bronchograms as well as smaller right middle lobe and inferior right upper lobe opacification highly likely inflammatory/infectious extending to the right hilum with some likely small
volume right hilar lymphadenopathy. Highly recommend follow-up Chest CT to confirm resolution of right lung opacification and to follow-up evaluation of right hilum.
Changes of emphysema again seen.
Minor left lung opacities most likely representing subsegmental atelectasis. Left lower lobe pneumonitis cannot be excluded.
CT head 11/2024: Negative
PFT 06/2022: FVC 68%, FEV1 38%, FEV1/FVC 40. Positive bronchodilator response. RV is 130% of predicted. DLCO 50%. Severe obstruction and moderately reduced DLCO.
ECHO 11/2024: Normal left ventricular chamber size. Mildly to moderately reduced left
ventricular systolic function. Left ventricular ejection fraction is 35-40%.
Global hypokinesis. Mild concentric left ventricular hypertrophy.
Normal right ventricular size. Normal right ventricular systolic function.
Mild mitral regurgitation.
Moderate tricuspid regurgitation. Estimated pulmonary artery pressure of 55-60
mmHg. Assuming a right atrial pressure of 15 mmHg.
ECHO 2009. D septum and PASP 55 mm.
Subjective Data
-
Date of Service:
Date of Service: December 23, 2024
Subjective:
Patient continues to improve. And waning without differently. at bedside. Still with mild cough, less productive. Denies chest pain, nausea, abdominal pain. Presently 3 L saturation 88-92% with sitting up
Objective Data
Data Reviewed
Vital Signs / I&O / Oxygen:
Vital Signs
Temp Pulse Resp BP Pulse Ox
97.4 F 76 15 154/94 93
12/23/24 07:39 12/23/24 08:25 12/23/24 07:57 12/23/24 08:25 12/23/24 07:57
Intake and Output
12/22/24 12/23/24 12/24/24
06:59 06:59 06:59
Intake Total 2370 / 2370 860 / 860
Output Total 2300 / 2300 2400 / 2400
Balance 70 / 70 -1540 / -1540
SaO2 93
Nasal Cannula flow liters per 3
minute
Physical Exam
General: Comfortable
HEENT: Normocephalic and Anicteric
Cardiovascular: S1-S2, Regular Rhythm, Murmur (n) and Rub (n)
Respiratory: Wheeze (n), Crackles (Few at right base), Rhonchi (n) and Non-Labored Respirations
GI: Soft, Non Distended and Non Tender
Neurology: Awake, Alert and No Motor Deficits (Able to sit up without assistance)
Skin: Cyanosis (n), Jaundice (n) and Rash (n)
Labs/Micro/Reports
Lab Data
12/21/24 05:27
12/23/24 04:39
Microbiology
12/17/24 07:30 Blood/Venous Blood Culture - Final
No Growth - Final Report
12/17/24 07:13 Blood/Venous Blood Culture - Final
No Growth - Final Report
12/20/24 17:06 Urine Legionella Urinary Antigen - Final
Negative for Legionella pneumophila Serogroup 1 antigen.
A negative result does not rule out the possiblity of
Legionella infection due to other serogroups or species of
Legionella. Clinical correlation is recommended.
12/20/24 17:06 Urine Streptococcus pneumoniae Antigen (M - Final
Negative for Streptococcus pneumoniae antigen.
A negative result does not exclude infection with
Streptococcus pneumoniae. Clinical correlation is
recommended.
12/18/24 03:34 Sputum Respiratory Culture - Final
Usual Respiratory Larry
12/18/24 03:34 Sputum Gram Stain - Final
--- NOTE | 2024-12-23 10:12 | W.PN.HOSP.TC ---
Today's Communication/Plan
-
dc
Assessment / Plan
Assessment / Plan
74yo M with PMHX of FATOUMATA on 3L nocturnal O2, anxiety, HLD, HTN, COPD came with palpitations, managed for Afib with RVR and found hypoxia with COPD exacerbation with large RLL pneumonia, improved to 3L O2, that he now needs around the clock. PT/OT
recommended home PT. Has appt with pulm on 12/31/24 and will follow up with them for repeated CT for his pulmonary findings - patient and bedside verbalized understanding. Medically stable for d/c home to complete 7 more days of Augmentin/DOxy
A/P:
#Afib with RVR, new onset, unspecified
#Non-ischemic myocardial injury
#NEw HFrEF, not in exacerbation
New onset
Cardio consult
Echo with hypokinesis and EF 35-40% and moderate TR
BB for control, TSH WNL
due to low BP unable fully start GDMT
Heparin drip switch to DOAC on 12/21/24 (as patient had BM and no concern for red blood on paper or black stools)
#Epistaxis/hemoptysis
resolved
monitor
#Fall with AMS, possible in-hospital delirium
CT head without acute bleed
#sepsis on admission 2/2 CAP with acute on chronic hypoxic and hypercapnic respiratory failure
#COPD exacerbation
Prednisone as per pulm consult. Repeat imaging in 8-12 weeks
Large right lower lobe consolidation with air bronchograms as well as smaller right middle lobe and inferior right upper lobe opacification highly likely inflammatory/infectious extending to the right hilum with some likely small volume right hilar
lymphadenopathy
switched to Zosyn, now Unasyn/DOxy (cover possible aspiration)
Sputum Cx NTD
Bcx NTD
Legionella and S.pneumonia urinary Ag neg
Wean off O2 to 6L
Antitussives
cont bronchodilators
#MAXIMILIANO
resolved
restart Lisinopril - now on 5mg to avoid hypotension
follow Cr
#mild anemia with macrocytosis
B12, folate wnl
need outpatient hematology
#Anxiety
#HLD
#HX of hypertension
stop Amlodipine to allow rate control with BB
cont sertraline
#Chronic transaminitis
at least since 2008
outpatient follow up with PCP
HepC neg
#Ambulatory deficiency
PT/OT
DVT ppx Eliquis
Full code
I have spent at least 37min reviewing chart, test results, communication with consultants and providing direct patient care
Anticipated Discharge: Today
Subjective/Interval History
-
Date of Service: December 23, 2024
Objective Data
-
Labs:
Laboratory Results
12/23/24
04:39
Sodium 145
Potassium 4.4
Chloride 102
Carbon Dioxide 42 H
BUN 28 H
Creatinine 0.8
Glucose 110 H
Calcium 8.9
Vital Signs:
Vital Signs
Temp Pulse Resp BP Pulse Ox
97.4 F 76 15 154/94 93
12/23/24 07:39 12/23/24 08:25 12/23/24 07:57 12/23/24 08:25 12/23/24 07:57
I&O
12/22/24 12/23/24 12/24/24
06:59 06:59 06:59
Intake Total 2370 / 2370 860 / 860
Output Total 2300 / 2300 2400 / 2400
Balance 70 / 70 -1540 / -1540
Review of Systems
-
History Source: Patient
All other systems: Reviewed and negative
Physical Exam
-
General: No Apparent Distress
HEENT: Normocephalic
Cardiac: Regular Rhythm
GI: Soft, Nontender and Nondistended
Skin: Warm
Neuro: Awake, Alert, Oriented and AO x 3
Psych: Calm
--- NOTE | 2024-12-23 12:27 | W.DCSUMMARY ---
Addendum entered and electronically signed by Florentino Silva MD 12/23/24 13:22:
tapering prednisone added for 4 more days
Addendum entered and electronically signed by Florentino Silva MD 12/23/24 13:20:
Updated home O2 assessment: 3L at rest, 4L on ambulation
Original Note:
Discharge Summary
Discharge Data
Date of Admission: 12/17/24
Date of Discharge: 12/23/24
-
Pending Results: No
Hospital Course
74yo M with PMHX of FATOUMATA on 3L nocturnal O2, anxiety, HLD, HTN, COPD came with palpitations, managed for Afib with RVR and found hypoxia with COPD exacerbation with large RLL pneumonia, improved to 3L O2, that he now needs around the clock. PT/OT
recommended home PT. Has appt with pulm on 12/31/24 and will follow up with them for repeated CT for his pulmonary findings - patient and bedside verbalized understanding. Medically stable for d/c home to complete 7 more days of Augmentin/DOxy.
Outpatient cardio and pulm consult referrals provided. Lucyquis $147 per mo - patient agrees for co-pay. Also advised outpatient medical biller coder 2/2 persistent mactrocytosis
I have spent at least 37min reviewing chart, test results, communication with consultants and providing direct patient care
patient was manage for:
#Afib with RVR, new onset, unspecified
#Non-ischemic myocardial injury
#NEw HFrEF, not in exacerbation
#Epistaxis/hemoptysis
#Fall with AMS, possible in-hospital delirium
#sepsis on admission 2/2 CAP with acute on chronic hypoxic and hypercapnic respiratory failure
#COPD exacerbation
#MAXIMILIANO
#mild anemia with macrocytosis
#Anxiety
#HLD
#HX of hypertension
#Chronic transaminitis
#Ambulatory deficiency
Discharge Plan
-
Patient Disposition: Home with Home Care
Discharge Diagnosis/Procedures: Pneumonia
Others Tests: CT chest in 8-12 weeks with vessel captain
Other Services: PT
Referrals:
Mi Sr PA-C [Specified Professional Personl] - 01/12/25 10:40 am
Referral Note: You have a cardiology follow-up appointment at the [place] office. Please call with questions
Celia Casas MD [Family Provider]
Ofelia Guzman CRNP [Specified Professional Personl, Pulmonary Medicine]
Referral Note: Appt 12/31 at 945 with SECURITY ASSURANCE ANALYST
Milad Diggs MD [Active, Hematology / Oncology] - in one to two months
Referral Note: For persistent mactrocytosis
Prescriptions:
New
ipratropium-albuterol 0.5 mg-3 mg(2.5 mg base)/3 mL Solution For Nebulization
3 ml inhalation .q6h prn Qty: 90 0RF
doxycycline hyclate 100 mg Capsule
100 mg PO BID Qty: 14 0RF
metoprolol succinate 50 mg Tablet Extended Release 24 Hr
50 mg PO BID Qty: 60 0RF
pantoprazole 40 mg Tablet,Delayed Release (Dr/Ec)
40 mg PO DAILY Qty: 30 0RF
lisinopril 5 mg Tablet
5 mg PO QPM Qty: 30 0RF
Eliquis 5 mg Tablet
5 mg PO BID Qty: 60 0RF
amoxicillin-pot clavulanate 875-125 mg tablet
1 tab PO Q12H Qty: 14 0RF
(DME) nebulizers Misc
See Rx Instructions .Route Qty: 1 0RF
Rx Instructions:
As directed
Continued
sertraline 50 MG tablet
50 mg PO QPM
multivitamin with folic acid [Tab-A-Christen] 1 TABLET tablet
1 tab PO QPM
guaifenesin [Mucus Relief ER] 600 MG tablet extended release 12hr
600 mg PO Q12 0RF
umeclidinium-vilanterol [Anoro Ellipta] 62.5-25 mcg/actuation Blister With Device
1 inh INHALATION R DAILY
PreserVision AREDS-2 250-90-40-1 mg Capsule
2 tab PO DAILY
atorvastatin 20 mg tablet
20 mg PO QPM
glucosamine-chondroitin 250-200 mg Tablet
2 tab PO DAILY
Discontinued
amlodipine 10 mg Tablet
10 mg PO QPM
lisinopril 20 MG tablet
20 mg PO QPM
Discharge Orders:
Discharge Patient (As Directed); Ordered 12/23/24
Ordered By: Florentino Silva
Discharge Date and Time
Print Language: MOZAMBICAN
--- NOTE | 2024-12-23 13:21 | VNURNOTE ---
Home Health Liaison met with patient and spouse at bedside to discuss [facility] nurse/therapy, visits, schedule and homebound status. Patient is agreeable and understands that visits at home will be 2-3 x per week to assess and teach medical management.
He stated he has an Inogen that goes up to 4L at home and a stationary concentrator that goes up to '5-6L.' He stated he paid out of pocket for these. Reviewed with spouse to obtain neb machine at [place]. Address and contact provided to her. Spoke
with son Lam and provided updates on status. Patient is aware that [facility] will contact them for start of care in 1-2 days after discharge from .
[facility] referral completed in [facility].
--- NOTE | 2024-12-23 15:50 | PTCARENOTE ---
Patient discharged to home. Patient left with all known belongings. Discharge instructions reviewed and all questions answered with patient and . Patient left via wheelchair to main lobby with patient transport.
--- NOTE | 2024-12-23 15:55 | CM ---
Patient with Dx sepsis, CAP, COPD exacerbation, pneumonia, sepsis, new Afib w RVR, new HF, Fall with AMS. O2 3L. Home O2 Assessment today. PT; HH. OT; SNF vs HH pend progress.
Met with patient and ; extensive conversation for d/c today. appeared anxious, very forgetful and somewhat confused throughout the meeting, interrupting patient with unrelated comments and tangential. Repeated explanations provided on all
points. Patient and agreed to discharge today. IMM completed.
Explained MD order for home nebulizer, providing [facility] address & phone # in writing, where patient can purchase for $49.99, unless covered by insurance when patient provides script to pharmacy- patient agrees to this. He was informed his
[facility] does not carry the nebulizer.
Explained cost of Eliquis $ 145.48/month per pharmacist at [facility] - provided Free Month card and patient agrees to this.
Patient informed of home O2 needs by nurse, and patient confirmed to [facility] that his O2 concentrator goes up to 5L and Inogen POC goes to 4L. forgot his POC tank for ride home so will go and retrieve it.
Patient agreed to VN for SN/PT/OT and chose [facility].
Spoke with son Lam by phone; relayed concerns re; 's forgetfulness and anxiety re; patient's d/c today- son states she is normally forgetful. Asked son if he could assist by picking up patient's meds at pharmacy so does not need to make 2
trips to pharmacy.
Plan home today with [facility], with nebulizer.
6
== END 2024-12-23 16:03 | disposition home health service (06) | DRG 871 ==
LOC: IMU 10:01
PROVIDERS: Internal Medicine; ADMITTING PHYSICIAN Internal Medicine; ATTENDING PHYSICIAN Internal Medicine; CONSULT PHYSICIAN Internal Medicine; CONSULT PHYSICIAN Internal Medicine Cardiovascular Disease; EMERGENCY PHYSICIAN Emergency Medicine; FAMILY PHYSICIAN Family Medicine
PROC: 5A09357 Assistance with Respiratory Ventilation, Less than 24 Consecutive Hours, Continuous Positive Airway Pressure (ICD-10-PCS; 2024-12-17)
DX: A41.89 Other specified sepsis (principal); J96.21 Acute and chronic respiratory failure with hypoxia; J96.22 Acute and chronic respiratory failure with hypercapnia; N17.9 Acute kidney failure, unspecified; I5A Non-ischemic myocardial injury (non-traumatic); R04.2 Hemoptysis; F05 Delirium due to known physiological condition; I42.9 Cardiomyopathy, unspecified; I50.22 Chronic systolic (congestive) heart failure; J43.9 Emphysema, unspecified; I11.0 Hypertensive heart disease with heart failure; E78.00 Pure hypercholesterolemia, unspecified; F32.A Depression, unspecified; I48.91 Unspecified atrial fibrillation; R65.20 Severe sepsis without septic shock; I27.20 Pulmonary hypertension, unspecified; R74.01 Elevation of levels of liver transaminase levels; G47.33 Obstructive sleep apnea (adult) (pediatric); I07.1 Rheumatic tricuspid insufficiency; F41.9 Anxiety disorder, unspecified; D53.9 Nutritional anemia, unspecified; R04.0 Epistaxis; W19.XXXA Unspecified fall, initial encounter; Y93.9 Activity, unspecified; Y92.230 Patient room in hospital as the place of occurrence of the external cause; Z99.81 Dependence on supplemental oxygen; Z87.891 Personal history of nicotine dependence; Z80.1 Family history of malignant neoplasm of trachea, bronchus and lung; Z88.0 Allergy status to penicillin; Z88.2 Allergy status to sulfonamides; Z79.51 Long term (current) use of inhaled steroids; Z11.52 Encounter for screening for COVID-19
CPT/HCPCS: 70450; 71045; 71260; 80048; 80053; 80061; 81003; 81015; 82607; 82746; 82805; 82962; 83036; 83605; 83735; 83880; 84443; 84484; 85025; 85027; 85730; 86803; 87040; 87070; 87205; 87449; 87502; 87641; 87811; 87899; 93005; 93306; 94640; 94660; 96365; 96375; 97116; 97163; 97167; 97535; 99291; Q9967

== ENCOUNTER → 2025-01-25 14:58 | Outpatient (REF) | payer OTHER, SELFPAY | LOC: DHSLP 14:58 | PROVIDERS: ATTENDING PHYSICIAN Internal Medicine Critical Care Medicine | DX: G47.33 Obstructive sleep apnea (adult) (pediatric) (principal); R09.02 Hypoxemia | CPT/HCPCS: 95810 ==

== ENCOUNTER → 2025-03-18 07:13 | Outpatient (REF) | payer OTHER, SELFPAY | LOC: HWRAD 07:13 | PROVIDERS: ATTENDING PHYSICIAN Nurse Practitioner Adult Health; FAMILY PHYSICIAN Family Medicine | DX: Z87.891 Personal history of nicotine dependence (principal); J18.9 Pneumonia, unspecified organism | CPT/HCPCS: 71250 ==

== ENCOUNTER → 2025-03-22 07:08 | Outpatient (REF) | payer OTHER, SELFPAY | LOC: HWRCS 07:08 | PROVIDERS: ATTENDING PHYSICIAN Physician Assistant Medical; FAMILY PHYSICIAN Family Medicine | DX: I50.20 Unspecified systolic (congestive) heart failure (principal) | CPT/HCPCS: 93306 ==

== ENCOUNTER → 2025-04-26 10:29 | Outpatient (REF) | payer OTHER, SELFPAY | LOC: PET 10:29 | PROVIDERS: ATTENDING PHYSICIAN Internal Medicine Cardiovascular Disease | DX: I50.20 Unspecified systolic (congestive) heart failure (principal) | CPT/HCPCS: 78431; A9555; J2785 ==